=== PATIENT | female | born 1995 | race Caucasian/White ===

== ENCOUNTER 2017-01-31 18:52 | Emergency (ER) | payer MEDICAID, OTHER ==
[2017-01-31] MEDS ORDERED: HYDROCODONE/ACETAMINOPHEN 5-325 MG TABLET PO ONE (19:04)
[2017-01-31] MEDS ORDERED: ONDANSETRON 4 MG TAB.RAPDIS PO ONE (19:04)
--- NOTE | 2017-01-31 19:05 | ER Document Report ---
ED Medical Screen (RME) - General Chief Complaint: Abdominal Pain Stated Complaint: STOMACH PAIN Time Seen by Provider: 01/31/17 19:00 Notes: This 21-year-old female patient comes emergency room complaining of upper abdominal pain since last night. She reports being diagnosed with multiple gallstones on an ultrasound at [facility] about a month ago. I have greeted and performed a rapid initial assessment of this patient. A comprehensive ED assessment and evaluation of the patient, analysis of test results and completion of the medical decision making process will be conducted by additional ED providers. TRAVEL OUTSIDE OF THE U.S. IN LAST 30 DAYS: No - Related Data Allergies/Adverse Reactions: No Known Allergies Allergy (Verified 01/31/17 18:56) Past Medical History Neurological Medical History: Reports: Hx Seizures Renal/ Medical History: Denies: Hx Peritoneal Dialysis - Immunizations Hx Diphtheria, Pertussis, Tetanus Vaccination: Yes Physical Exam - Vital signs Vitals: Temp Pulse Resp BP Pulse Ox 98.4 F 115 H 18 122/81 99 01/31/17 18:57 01/31/17 18:57 01/31/17 18:57 01/31/17 18:57 01/31/17 18:57 Course - Vital Signs Vital signs: Temp Pulse Resp BP Pulse Ox 98.4 F 115 H 18 122/81 99 01/31/17 18:57 01/31/17 18:57 01/31/17 18:57 01/31/17 18:57 01/31/17 18:57
[2017-01-31 19:32] LABS: ABSOLUTE LYMPHOCYTES (AUTO) 1.2 10^3/uL (0.5-4.7); ABSOLUTE MONOCYTES (AUTO) 0.4 10^3/uL (0.1-1.4); ABSOLUTE NEUT (AUTO) 4.4 10^3/uL (1.7-8.2); BASOPHILS % (AUTO) 0.3 % (0-2); EOSINOPHILS % (AUTO) 0.4 % (0-6); HEMATOCRIT 43.6 % (36.0-47.0); HEMOGLOBIN 15.3 g/dL (12.0-15.5); HGB HCT DIFFERENCE 2.3; LYMPHOCYTES % (AUTO) 19.8 % (13-45); MEAN CORPUSCULAR HEMOGLOBIN 33.7 pg (27.0-33.4); MEAN CORPUSCULAR VOLUME 96 fl (80-97); MONOCYTES % (AUTO) 7.1 % (3-13); RED BLOOD COUNT 4.53 10^6/uL (3.72-5.28); RED CELL DISTRIBUTION WIDTH 13.4 % (11.5-14.0); SEGMENTED NEUTROPHILS % (AUTO) 72.4 % (42-78); WHITE BLOOD COUNT 6.1 10^3/uL (4.0-10.5)
[2017-01-31 19:37] LABS: APPEARANCE,URINE SLIGHTLY-CLOUDY; BILIRUBIN,URINE SMALL (NEGATIVE); GLUCOSE, URINE NEGATIVE (NEGATIVE); KETONES,URINE TRACE mg/dL (NEGATIVE); LEUKOCYTE ESTERASE,URINE NEGATIVE (NEGATIVE); NITRITE,URINE NEGATIVE (NEGATIVE); PROTEIN,URINE 30 mg/dL (NEGATIVE); URINE SPECIFIC GRAVITY 1.025
[2017-01-31 19:44] LABS: ALANINE AMINOTRANSFERASE 813 U/L (9-52); ALBUMIN 4.7 g/dL (3.5-5.0); ALKALINE PHOSPHATASE 154 U/L (38-126); ANION GAP 14 (5-19); ASPARTATE AMINO TRANSFERASE 719 U/L (14-36); BILIRUBIN,DIRECT 1.1 mg/dL (0.0-0.4); BILIRUBIN,TOTAL 1.6 mg/dL (0.2-1.3); BLOOD UREA NITROGEN 10 mg/dL (7-20); CALCIUM 10.4 mg/dL (8.4-10.2); CARBON DIOXIDE 26 mmol/L (22-30); CHLORIDE 103 mmol/L (98-107); CREATININE RESULT 0.53 mg/dL (0.52-1.25); GLUCOSE 107 mg/dL (75-110); SODIUM 143.4 mmol/L (137-145); TOTAL PROTEIN 7.6 g/dL (6.3-8.2)
[2017-01-31] MEDS ORDERED: KETOROLAC TROMETHAMINE INJ/PF 30 MG/1 ML SDV IV ONE (20:02)
[2017-01-31] MEDS ORDERED: NORMAL SALINE 1000 ML 1,000 ML IV ONE (20:02)
--- NOTE | 2017-01-31 20:05 | ER Document Report ---
ED GI/ - General Chief Complaint: Abdominal Pain Stated Complaint: STOMACH PAIN Time Seen by Provider: 01/31/17 19:00 Notes: Patient is a 21-year-old female comes emergency department for chief complaint of right upper quadrant pain that radiates around to her back, she states it has been much worse over the past day with vomiting and inability to eat. Pain has become constant. She denies fever or chills. She states she was diagnosed with gallstones by ultrasound down in [place] about a month ago. She denies any other locations of pain. Past medical history of epilepsy, she is treated with valproic acid, Keppra, Onfi. She denies any surgeries or any other medical history. TRAVEL OUTSIDE OF THE U.S. IN LAST 30 DAYS: No - Related Data Allergies/Adverse Reactions: No Known Allergies Allergy (Verified 01/31/17 18:56) Past Medical History - General Information source: Patient - Social History Smoking Status: Current Every Day Smoker Chew tobacco use (# tins/day): No Frequency of alcohol use: Rare Drug Abuse: None Family History: Reviewed & Not Pertinent Neurological Medical History: Reports: Hx Seizures Renal/ Medical History: Denies: Hx Peritoneal Dialysis Surgical Hx: Negative - Immunizations Hx Diphtheria, Pertussis, Tetanus Vaccination: Yes Review of Systems - Review of Systems Constitutional: No symptoms reported EENT: No symptoms reported Cardiovascular: No symptoms reported Respiratory: No symptoms reported Gastrointestinal: See HPI Genitourinary: No symptoms reported Female Genitourinary: No symptoms reported Musculoskeletal: No symptoms reported Skin: No symptoms reported Hematologic/Lymphatic: No symptoms reported Neurological/Psychological: No symptoms reported Physical Exam - Vital signs Vitals: Temp Pulse Resp BP Pulse Ox 98.4 F 115 H 18 122/81 99 01/31/17 18:57 01/31/17 18:57 01/31/17 18:57 01/31/17 18:57 01/31/17 18:57 Interpretation: Normal - General General appearance: Appears well, Alert In distress: None - HEENT Head: Normocephalic, Atraumatic Eyes: Normal Pupils: PERRL - Respiratory Respiratory status: No respiratory distress Chest status: Nontender Breath sounds: Normal Chest palpation: Normal - Cardiovascular Rhythm: Regular, Tachycardia Heart sounds: Normal auscultation, S1 appreciated, S2 appreciated Murmur: No - Abdominal Inspection: Normal Distension: No distension Bowel sounds: Normal Tenderness: Tender - Tenderness in the right upper quadrant on examination, otherwise unremarkable exam with no guarding or tenderness Organomegaly: No organomegaly - Back Back: Normal, Nontender - Extremities General upper extremity: Normal inspection, Nontender, Normal color, Normal ROM , Normal temperature General lower extremity: Normal inspection, Nontender, Normal color, Normal ROM , Normal temperature, Normal weight bearing. No: Renita's sign - Neurological Neuro grossly intact: Yes Cognition: Normal Orientation: AAOx4 [place] Coma Scale Eye Opening: Spontaneous [place] Coma Scale Verbal: Oriented James Coma Scale Motor: Obeys Commands [place] Coma Scale Total: 15 Speech: Normal Motor strength normal: LUE, RUE, LLE, RLE Sensory: Normal - Psychological Associated symptoms: Normal affect, Normal mood - Skin Skin Temperature: Warm Skin Moisture: Dry Skin Color: Normal Course - Re-evaluation Re-evalutation: Patient has been medicated already on my initial evaluation, she states she is mostly comfortable and only has mild pain. There is some right upper quadrant tenderness on examination but otherwise her examination is completely unremarkable. No fever, tachycardia resolved, no hypotension. No leukocytosis, CBC unremarkable. Chemistry shows concerning the elevated LFTs , elevated alk phos, elevated bilirubin. Lipase is unremarkable. Concerning for choledocholithiasis. Ultrasound showing cholelithiasis with gallbladder wall thickening, no obvious dilatation of the common bile duct. Patient given Invanz antibiotics. Patient will likely need ERCP. I discussed this with patient and father at bedside in detail. Discussed with Dr. Reddy. 01/31/17 21:10 Called [facility], patient has been recently under similar circumstances, spoke with Dr. Escoto, patient accepted for transfer. Discussed with patient and father again, they state agreement with plan of going to [facility]. 01/31/17 23:15 Patient reevaluated again, states she has minimal current symptoms, declines any additional medication, alert, well-appearing, unchanged from prior. Stable for transport. - Vital Signs Vital signs: Temp Pulse Resp BP Pulse Ox 97.8 F 77 18 109/64 98 01/31/17 21:34 01/31/17 21:34 01/31/17 21:34 01/31/17 21:34 01/31/17 21:34 - Laboratory Result Diagrams: 01/31/17 19:20 01/31/17 19:20 Laboratory results interpreted by me: 01/31/17 01/31/17 01/31/17 19:20 19:20 19:20 MCH 33.7 H Calcium 10.4 H Total Bilirubin 1.6 H Direct Bilirubin 1.1 H AST 719 H ALT 813 H Alkaline Phosphatase 154 H Urine Protein 30 H Urine Ketones TRACE H Urine Bilirubin SMALL H Urine Urobilinogen 4.0 H Discharge - Discharge Clinical Impression: Right upper quadrant pain, Choledocholithiasis Cholelithiasis Qualifiers: Cholelithiasis location: gallbladder Cholecystitis presence: without cholecystitis Biliary obstruction: with biliary obstruction Qualified Code(s): K80.21 - Calculus of gallbladder without cholecystitis with obstruction Condition: Stable Disposition: [facility]
--- NOTE | 2017-01-31 20:07 | RADIOLOGY REPORT (SQ) ---
EXAM DESCRIPTION: U/S ABDOMEN LIMITED W/O DOP COMPLETED DATE/TIME: 01/31/2017 7:54 pm REASON FOR STUDY: know gallstones, RUQ abd pain since last night COMPARISON: None. TECHNIQUE: Dynamic and static grayscale images acquired of the abdomen and recorded on PACS. Additio nal selected color Doppler and spectral images recorded. LIMITATIONS: None. FINDINGS: PANCREAS: No masses. No peripancreatic edema or fluid collections. LIVER: Echotexture is coarse with increased echogenicity consistent with fatty infiltration. LIVER VASCULATURE: Normal blood flow is identified in the portal vein. GALLBLADDER: Multiple gallstones are identified. There is some thickening of the gallbladder scott. The possibility of cholecystitis should be considered. ULTRASOUND-DETECTED ALATORRE'S SIGN: Positive INTRAHEPATIC DUCTS AND COMMON DUCT: CBD and intrahepatic ducts normal caliber. No filling defects. INFERIOR VENA CAVA: Normal flow. AORTA: No aneurysm. RIGHT KIDNEY: 11.8 cm in length. Normal echogenicity. No solid or suspicious masses. No hydron ephrosis. No calcifications. PERITONEAL AND RIGHT PLEURAL SPACE: No ascites or effusions. OTHER: No other significant finding. IMPRESSION: Multiple gallstones are identified. There is some thickening of the gallbladder scott a nd the possibility of cholecystitis should be considered. Other findings as noted above TECHNICAL DOCUMENTATION: JOB ID: [id number] [employer]- All Rights Reserved
[2017-01-31] MEDS ORDERED: ERTAPENEM SODIUM INJ 1 GM VIAL IV ONE (20:42)
[2017-01-31 21:35] VITALS: BP 109/64
== END 2017-01-31 22:32 | disposition short-term general hospital (02) ==
LOC: ER 18:52
DX: K80.21 Calculus of gallbladder without cholecystitis with obstruction (principal); K80.50 Calculus of bile duct without cholangitis or cholecystitis without obstruction; R10.11 Right upper quadrant pain; M54.9 Dorsalgia, unspecified; F17.200 Nicotine dependence, unspecified, uncomplicated
CPT/HCPCS: 99285; 36415; 83690; 84703; 85025; 80053; 81001; 76705; S0119; J1335; J1885; J7030

== ENCOUNTER 2017-03-01 12:38 | Emergency (ER) | payer MEDICAID ==
--- NOTE | 2017-03-01 14:01 | EKG REPORT ---
SEVERITY:- ABNORMAL ECG - SINUS TACHYCARDIA BORDERLINE RIGHT AXIS DEVIATION ABNORMAL T, CONSIDER ISCHEMIA, INFERIOR LEADS LVH With secondary ST-T Wave changes : Confirmed by: Michelle Rojo 01-Mar-2017 14:00:36
[2017-03-01] MEDS ORDERED: ASPIRIN 81 MG TABLET, CHEWABLE PO ONE (15:04)
[2017-03-01] MEDS ORDERED: NORMAL SALINE 1000 ML 1,000 ML IV PRN (15:06)
[2017-03-01 15:27] LABS: ABSOLUTE MONOCYTES (AUTO) 0.4 10^3/uL (0.1-1.4); ABSOLUTE NEUT (AUTO) 2.7 10^3/uL (1.7-8.2); BASOPHILS % (AUTO) 0.4 % (0-2); EOSINOPHILS % (AUTO) 0.7 % (0-6); HEMATOCRIT 41.6 % (36.0-47.0); HEMOGLOBIN 14.3 g/dL (12.0-15.5); HGB HCT DIFFERENCE 1.3; LYMPHOCYTES % (AUTO) 38.7 % (13-45); MEAN CORPUSCULAR HEMOGLOBIN 33.3 pg (27.0-33.4); MEAN CORPUSCULAR HGB CONC 34.5 g/dL (32.0-36.0); MEAN CORPUSCULAR VOLUME 97 fl (80-97); MONOCYTES % (AUTO) 7.7 % (3-13); SEGMENTED NEUTROPHILS % (AUTO) 52.5 % (42-78); WHITE BLOOD COUNT 5.1 10^3/uL (4.0-10.5)
--- NOTE | 2017-03-01 15:32 | ER Document Report ---
ED General - General Chief Complaint: Chest Pain Stated Complaint: CHEST PAIN Time Seen by Provider: 03/01/17 15:03 Mode of Arrival: Stretcher Information source: Patient, Relative TRAVEL OUTSIDE OF THE U.S. IN LAST 30 DAYS: No - HPI Patient complains to provider of: Chest pain Onset: Yesterday Onset/Duration: Sudden Quality of pain: Achy Severity: Moderate Pain Level: 3 Exacerbated by: Movement, Coughing, Deep breathing Relieved by: Denies Similar symptoms previously: No Recently seen / treated by doctor: No Notes: Patient is a 22-year-old female with a history of epilepsy who denies missing any doses of her medication, who presents to the emergency room complaining of chest pain that started yesterday evening, she does report having an seizure yesterday morning but denies any injury from the seizure, she reports left- sided chest pain initially denies any aggravating or alleviating symptoms, but does report it hurts when she takes a deep breath when I asked her to take a deep breath on exam, and also tells me it hurts when I palpate the left chest, she denies any cough, no fevers, no history of similar symptoms, she also reports that she had a near syncopal episode this evening, patient reports numbness to her left foot below the ankle as well, also stating that she is unable to move it, this is been going on since yesterday as well - Related Data Allergies/Adverse Reactions: No Known Allergies Allergy (Verified 01/31/17 18:56) Past Medical History - General Information source: Patient - Social History Smoking Status: Current Every Day Smoker Chew tobacco use (# tins/day): No Frequency of alcohol use: Occasional Drug Abuse: None Family History: Reviewed & Not Pertinent Patient has suicidal ideation: No Patient has homicidal ideation: No Neurological Medical History: Reports: Hx Seizures Renal/ Medical History: Denies: Hx Peritoneal Dialysis Past Surgical History: Reports: Hx Cholecystectomy - Immunizations Hx Diphtheria, Pertussis, Tetanus Vaccination: Yes Review of Systems - Review of Systems Constitutional: No symptoms reported EENT: No symptoms reported Cardiovascular: Chest pain, Lightheaded Respiratory: No symptoms reported Gastrointestinal: No symptoms reported Genitourinary: No symptoms reported Female Genitourinary: No symptoms reported Musculoskeletal: No symptoms reported Skin: No symptoms reported Hematologic/Lymphatic: No symptoms reported Neurological/Psychological: Numbness Physical Exam - Vital signs Vitals: Temp Pulse Resp BP Pulse Ox 97.8 F 101 H 14 115/74 98 03/01/17 12:57 03/01/17 12:57 03/01/17 12:57 03/01/17 12:57 03/01/17 12:57 Interpretation: Tachycardic - General General appearance: Appears well, Alert In distress: None - HEENT Head: Normocephalic, Atraumatic Eyes: Normal Conjunctiva: Normal Extraocular movements intact: Yes Eyelashes: Normal Pupils: PERRL - Respiratory Respiratory status: No respiratory distress Chest status: Tender - Tender to palpate in left anterior chest wall Breath sounds: Normal Chest palpation: Normal - Cardiovascular Rhythm: Regular Heart sounds: Normal auscultation Murmur: No - Abdominal Inspection: Normal Distension: No distension Bowel sounds: Normal Tenderness: Nontender Organomegaly: No organomegaly - Back Back: Normal, Nontender - Extremities General upper extremity: Normal inspection, Nontender, Normal color, Normal ROM , Normal temperature General lower extremity: Normal inspection, Nontender, Normal color, Normal ROM , Normal temperature. No: Renita's sign Notes: Patient reports no sensation to palpate her left foot below the ankle, 2+ DP pulses, brisk capillary refill - Neurological Neuro grossly intact: Yes Cognition: Normal Orientation: AAOx4 James Coma Scale Eye Opening: Spontaneous James Coma Scale Verbal: Oriented [place] Coma Scale Motor: Obeys Commands [place] Coma Scale Total: 15 Speech: Normal Motor strength normal: LUE, RUE, LLE, RLE Sensory: Normal - Psychological Associated symptoms: Normal affect, Normal mood - Skin Skin Temperature: Warm Skin Moisture: Dry Skin Color: Normal Course - Re-evaluation Re-evalutation: 03/01/17 22:48 Lab and imaging findings were discussed with patient at bedside which are unremarkable, she appears to have a peripheral neuropathy to the left foot, and advised that she is unable to walk without assistance, therefore she was placed in a posterior ankle splint to provide support to her foot, and offered crutches which she declined stating she has crutches at home, she recently moved to the area from [place] and has not yet established neurologist, or a primary care provider, she also indicated that when she has near syncopal episode she is hyperventilating and does relate that this is related to stress, so they are likely panic attacks, before she was given a list of mental health providers in the area to follow-up with as well, patient and father at bedside acknowledge understanding and agreement with this plan - Vital Signs Vital signs: Temp Pulse Resp BP Pulse Ox 97.4 F 101 H 18 101/51 L 98 03/01/17 18:14 03/01/17 12:57 03/01/17 17:31 03/01/17 17:31 03/01/17 17:31 - Laboratory Result Diagrams: 03/01/17 15:05 03/01/17 15:05 - Diagnostic Test Radiology reviewed: Image reviewed, Reports reviewed - EKG Interpretation by Me EKG shows normal: Sinus rhythm Rate: Tachycardia Additional EKG results interpreted by me: 03/01/17 22:50 Inverted T waves in inferior leads Procedures - Immobilization Left Ankle Time completed: 21:50 Pre-Proc Neuro Vasc Exam: Normal Immobilizer type: Posterior ankle Performed by: PCT Post-Proc Neuro Vasc Exam: Normal Alignment checked and good: Yes Discharge - Discharge Clinical Impression: Chest wall pain, Panic attack, Seizure disorder Peripheral neuropathy Qualifiers: Peripheral neuropathy type: mononeuropathy, unspecified Qualified Code(s): G58.9 - Mononeuropathy, unspecified Condition: Stable Disposition: HOME, SELF-CARE Instructions: Anti-Inflammatory Medication ([facility]), Chest Wall Pain ([facility]), Family Physicians / Practices, Neurologist, Neuropathy ([facility]), Seizure, Known Epileptic ([facility]) Additional Instructions: Follow-up with a primary care provider, a neurologist and a mental health professional within the next week. Return to the emergency room immediately if symptoms worsen or any additional concerns. Prescriptions: Ibuprofen [Motrin 600 Mg Tablet] 600 mg PO TID #30 tablet Forms: Return to Work
[2017-03-01 15:36] LABS: ALANINE AMINOTRANSFERASE 27 U/L (9-52); ALBUMIN 4.5 g/dL (3.5-5.0); ALKALINE PHOSPHATASE 66 U/L (38-126); ANION GAP 13 (5-19); ASPARTATE AMINO TRANSFERASE 18 U/L (14-36); BILIRUBIN,DIRECT 0.3 mg/dL (0.0-0.4); BILIRUBIN,TOTAL 0.5 mg/dL (0.2-1.3); BLOOD UREA NITROGEN 11 mg/dL (7-20); CALCIUM 9.9 mg/dL (8.4-10.2); CARBON DIOXIDE 27 mmol/L (22-30); CHLORIDE 104 mmol/L (98-107); CREATININE RESULT 0.63 mg/dL (0.52-1.25); GLUCOSE 75 mg/dL (75-110); POTASSIUM 4.7 mmol/L (3.6-5.0); SODIUM 144.3 mmol/L (137-145); TOTAL PROTEIN 7.2 g/dL (6.3-8.2)
--- NOTE | 2017-03-01 16:25 | RADIOLOGY REPORT (SQ) ---
EXAM DESCRIPTION: CHEST PA/LAT COMPLETED DATE/TIME: 03/01/2017 4:12 pm REASON FOR STUDY: CHEST PAIN COMPARISON: None. EXAM PARAMETERS: NUMBER OF VIEWS: two views TECHNIQUE: Digital Frontal and Lateral radiographic views of the chest acquired. RADIATION DOSE: NA LIMITATIONS: none FINDINGS: LUNGS AND PLEURA: No opacities, masses or pneumothorax. No pleural effusion. MEDIASTINUM AND HILAR STRUCTURES: No masses or contour abnormalities. HEART AND VASCULAR STRUCTURES: Heart normal size. No evidence for failure. BONES: No acute findings. HARDWARE: None in the chest. OTHER: No other significant finding. IMPRESSION: NO SIGNIFICANT RADIOGRAPHIC FINDING IN THE CHEST. TECHNICAL DOCUMENTATION: JOB ID: [id number] [employer]- All Rights Reserved
--- NOTE | 2017-03-01 16:26 | RADIOLOGY REPORT (SQ) ---
EXAM DESCRIPTION: L SPINE WHOLE COMPLETED DATE/TIME: 03/01/2017 4:12 pm REASON FOR STUDY: pain COMPARISON: None. NUMBER OF VIEWS: Five views including obliques. TECHNIQUE: AP, lateral, oblique, and sacral radiographic images acquired of the lumbar spine. LIMITATIONS: None. FINDINGS: MINERALIZATION: Normal. SEGMENTATION: Normal. No transitional anatomy. ALIGNMENT: Normal. VERTEBRAE: Maintained height. No fracture or worrisome bone lesion. DISCS: Preserved height. No significant osteophytes or end plate irregularity. POSTERIOR ELEMENTS: Pedicles and facets are intact. No pars defect or posterior arch defects. HARDWARE: None in the spine. PARASPINAL SOFT TISSUES: Normal. PELVIS: Intact as visualized. No fractures or worrisome bone lesions. SI joints intact. OTHER: No other significant finding. IMPRESSION: NORMAL 5 VIEW LUMBAR SPINE. TECHNICAL DOCUMENTATION: JOB ID: [id number] [employer]- All Rights Reserved
[2017-03-01 17:21] LABS: APPEARANCE,URINE CLEAR; BILIRUBIN,URINE NEGATIVE (NEGATIVE); GLUCOSE, URINE NEGATIVE (NEGATIVE); KETONES,URINE NEGATIVE (NEGATIVE); LEUKOCYTE ESTERASE,URINE NEGATIVE (NEGATIVE); NITRITE,URINE NEGATIVE (NEGATIVE); PROTEIN,URINE NEGATIVE (NEGATIVE); URINE SPECIFIC GRAVITY 1.013; UROBILINOGEN,URINE NEGATIVE mg/dL (<2.0)
[2017-03-01 17:35] VITALS: BP 101/51
== END 2017-03-01 18:15 | disposition home or self-care (01) ==
LOC: ER 12:38
PROC: 2W3RX1Z Immobilization of Left Lower Leg using Splint (ICD-10-PCS; principal; 2017-03-01)
DX: R07.9 Chest pain, unspecified (principal); R07.89 Other chest pain; F41.0 Panic disorder [episodic paroxysmal anxiety]; G40.909 Epilepsy, unspecified, not intractable, without status epilepticus; G58.9 Mononeuropathy, unspecified; F17.200 Nicotine dependence, unspecified, uncomplicated
CPT/HCPCS: 93005; 99285; 96360; 36415; 82962; 85025; 81025; 80053; 81001; 84484; 85379; 71020; 72110; 93010; 29515; J7030

== ENCOUNTER 2017-03-06 22:27 | Emergency (ER) | payer MEDICAID ==
--- NOTE | 2017-03-06 23:36 | ER Document Report ---
HPI - HPI Patient complains to provider of: lost feeling in both feet Onset: Other - wednesday- left foot , came in wednesday. Onset/Duration: Persistent Pain Level: 1 Context: 22 yo disheveled smoker spina bifada (non surgery), non drugs, rare etoh, with hx. epilepsy, (meds depakote 1750 bid, keppra 1500 bid, onfi (benzo) 10mg bid no change in dosing) female c/o left ankle to toes numbness since wednesday, seen in ER on wednesday, Tonight at 9:30 pm it started in right nkle to foot. "I don't have any idea how I cam going to walk now." PCP: none, moved from [place] a month ago. No neurologist local- was given refills from [facility]. LMP: Nexplanon. Fiance rubbed her left foot yesterday, popped her toes which she could feel. States she always twitches because of seizures. Walked to the car at 9:30 pm slower than usual. Did walk with fiance help, states she can't feel from the ankle's down. Gait usually normal but knees give out on her. No vomiting or diarrhea. Shakey more than usual for a couple days. No saddle anesthesia. Associated Symptoms: None - REPRODUCTIVE Reproductive: DENIES: : Past Medical History - General Information source: Patient - Social History Smoking Status: Current Every Day Smoker Frequency of alcohol use: None Drug Abuse: None Occupation: unemployed Lives with: Spouse/Significant other Family History: Reviewed & Not Pertinent Neurological Medical History: Reports: Hx Seizures Renal/ Medical History: Denies: Hx Peritoneal Dialysis Past Surgical History: Reports: Hx Cholecystectomy - Immunizations Hx Diphtheria, Pertussis, Tetanus Vaccination: Yes Vertical Provider Document - CONSTITUTIONAL Agree With Documented VS: Yes Exam Limitations: No Limitations General Appearance: No Apparent Distress - INFECTION CONTROL TRAVEL OUTSIDE OF THE U.S. IN LAST 30 DAYS: No - HEENT HEENT: Normocephalic, PERRLA. negative: Pharyngeal Erythema, Tympanic Membrane Red - NECK Neck: Supple. negative: Lymphadenopathy-Left, Lymphadenopathy-Right - RESPIRATORY Respiratory: Breath Sounds Normal, No Respiratory Distress O2 Sat by Pulse Oximetry: 99 - CARDIOVASCULAR Cardiovascular: Regular Rate, Regular Rhythm - GI/ABDOMEN Gastrointestinal: Abdomen Soft, Abdomen Non-Tender, No Organomegaly Notes: rectal/anal tone normal - BACK Back: Normal Inspection - MUSCULOSKELETAL/EXTREMETIES Musculoskeletal/Extremeties: Non-Tender, No Edema Notes: pt states that she can not move or feel either feet from ankles to plantar feet. the color/temperature, pulses are normal. No babinski response, when I take the big toe and move the whole foot back and forth she does not respond to it and states she can not feel it. once with exam when I had her close her eyes she stopped herself from saying yes when I touched medial right foot. I did get her to walk which she states she could not do by asking her to lift each leg using the thigh muscle, bending knee and planting foot on the ground. She held onto her fiance but did walk 4 feet and go back into the bed. Her demeanor is avoidance of eye contact, wanting to lie on left side with covers over her. I could not elicit patellar or ankle reflexes which she sates is normal for her. - NEURO Level of Consciousness: Awake, Alert Motor/Sensory: Sensory Deficit - per patient, see above, Weak Motor Strength RLE , Weak Motor Strength LLE - will not move feet as request at all Deep Tendon Reflexes: Absent - DERM Integumentary: Warm, Dry, No Rash Course - Re-evaluation Re-evalutation: 03/07/17 00:[address] aWlker who asked me to do a rectal exam in the rectal tone was normal. The patient does not remember the neurologist that she saw it [facility] she was there for 6 days in August. She also rec. to call Neurology at [facility]. 03/07/17 02:18 call to [facility] transitional kindergarten teacher, Dr. Nabeel Mcbride. 03/07/17 02:42 Pt had normal reflexes in August, speaking with Dr. Mcbride which is concerning to him. She needs to see neurologist. 03/07/17 03:23 dr. Demarco frazierist accepts the pt, tele neurologist until 0700, then will have neurologist that can see her. 03/07/17 03:29 Patient call me back in the room and does not want to be transferred anywhere nor does she want to see a neurologist she wants to leave AGAINST MEDICAL ADVICE. 03/07/17 04:15 After lengthy discussion with the patient she vacillated back and forth as to whether she would go to [facility] or not. She is made a final decision and wants to leave AGAINST MEDICAL ADVICE charge nurse Selene was in the room while I explained the risks of a progressing ascending neurological process such as Guillain-Cat which could cause respiratory arrest due to respiratory muscle paralysis. She understands these risks and still wants to leave AGAINST MEDICAL ADVICE. Her fiance was in the room also. - Vital Signs Vital signs: Temp Pulse Resp BP Pulse Ox 98.4 F 94 16 113/75 99 03/06/17 23:09 03/06/17 23:09 03/06/17 23:09 03/06/17 23:09 03/06/17 23:09 - Laboratory Result Diagrams: 03/07/17 01:13 03/07/17 01:13 Discharge - Discharge Clinical Impression: Paresthesia of foot, bilateral, loss of patellar and ankle refexes, Altered gait, hx seizures, Muscle weakness Condition: Good Disposition: AGAINST MEDICAL ADVICE Instructions: Numbness or Paresthesia ([facility]) Additional Instructions: return to the emergency room if you change your mind about seeing a neurologist or symptoms worsen Referrals: LAURIE KAUFMAN MD [ACTIVE STAFF] - 03/08/17
[2017-03-07 01:25] LABS: ABSOLUTE EOSINOPHILS # (AUTO) 0.1 10^3/uL (0.0-0.6); ABSOLUTE LYMPHOCYTES (AUTO) 2.9 10^3/uL (0.5-4.7); ABSOLUTE MONOCYTES (AUTO) 0.4 10^3/uL (0.1-1.4); ABSOLUTE NEUT (AUTO) 2.7 10^3/uL (1.7-8.2); BASOPHILS % (AUTO) 0.6 % (0-2); HEMATOCRIT 37.6 % (36.0-47.0); HEMOGLOBIN 13.1 g/dL (12.0-15.5); HGB HCT DIFFERENCE 1.7; LYMPHOCYTES % (AUTO) 47.4 % (13-45); MEAN CORPUSCULAR HEMOGLOBIN 33.5 pg (27.0-33.4); MEAN CORPUSCULAR HGB CONC 34.7 g/dL (32.0-36.0); MEAN CORPUSCULAR VOLUME 97 fl (80-97); MONOCYTES % (AUTO) 6.2 % (3-13); RED CELL DISTRIBUTION WIDTH 12.5 % (11.5-14.0); SEGMENTED NEUTROPHILS % (AUTO) 44.8 % (42-78); WHITE BLOOD COUNT 6.1 10^3/uL (4.0-10.5)
[2017-03-07 01:44] LABS: ALANINE AMINOTRANSFERASE 24 U/L (9-52); ALKALINE PHOSPHATASE 56 U/L (38-126); ANION GAP 13 (5-19); ASPARTATE AMINO TRANSFERASE 12 U/L (14-36); BILIRUBIN,DIRECT 0.4 mg/dL (0.0-0.4); BILIRUBIN,TOTAL 0.4 mg/dL (0.2-1.3); BLOOD UREA NITROGEN 23 mg/dL (7-20); CALCIUM 9.6 mg/dL (8.4-10.2); CARBON DIOXIDE 23 mmol/L (22-30); CHLORIDE 106 mmol/L (98-107); CREATINE KINASE 50 U/L (30-135); CREATININE RESULT 0.48 mg/dL (0.52-1.25); GLUCOSE 90 mg/dL (75-110); MAGNESIUM 1.9 mg/dL (1.6-2.3); POTASSIUM 4.6 mmol/L (3.6-5.0); SODIUM 141.9 mmol/L (137-145); TOTAL PROTEIN 6.3 g/dL (6.3-8.2)
[2017-03-07 02:00] LABS: APPEARANCE,URINE SLIGHTLY-CLOUDY; BILIRUBIN,URINE NEGATIVE (NEGATIVE); GLUCOSE, URINE NEGATIVE (NEGATIVE); KETONES,URINE TRACE mg/dL (NEGATIVE); LEUKOCYTE ESTERASE,URINE TRACE (NEGATIVE); NITRITE,URINE NEGATIVE (NEGATIVE); PROTEIN,URINE NEGATIVE (NEGATIVE); URINE SPECIFIC GRAVITY 1.031; UROBILINOGEN,URINE NEGATIVE mg/dL (<2.0)
[2017-03-07 02:01] LABS: URINE BARBITURATES SCREEN NEGATIVE; URINE METHADONE SCREEN NEGATIVE; URINE OPIATES LOW NEGATIVE; URINE PHENCYCLIDINE SCREEN NEGATIVE
[2017-03-07] MEDS ORDERED: NORMAL SALINE 1000 ML 2,000 ML IV ONE (02:14)
[2017-03-07 04:35] VITALS: BP 127/81
== END 2017-03-07 04:32 | disposition left against medical advice (07) ==
LOC: ER 22:27
DX: R20.2 Paresthesia of skin (principal); R26.89 Other abnormalities of gait and mobility; M62.81 Muscle weakness (generalized); G40.909 Epilepsy, unspecified, not intractable, without status epilepticus
CPT/HCPCS: 99284; 96360; 36415; 82550; 83735; 84703; 85025; 80053; 81001; 80307; J7030

== ENCOUNTER 2017-03-23 20:37 | Emergency (ER) | payer MEDICAID ==
--- NOTE | 2017-03-23 23:41 | ER Document Report ---
HPI - HPI Pain Level: 5 Notes: Patient is a 22-year-old female with a history of epilepsy who presents ED complaining of fever, nasal congestion/discharge, occasional dry nonproductive cough, body ache 12 hours. Patient states that she is still able to eat and drink without any difficulties, but does have occasional nausea. She still urinating normally and having normal bowel movements. She denies any other recent illness or significant medical history otherwise. Denies any drug allergies. Denies any headache, neck pain, sore throat, chest pain, palpitations, syncope, shortness of breath, wheeze, dyspnea, abdominal pain, vomiting/diarrhea, urinary retention, dysuria, hematuria, loss of control of bowel or bladder, numbness/tingling, muscle paralysis/weakness, or rash. - ROS Notes: REVIEW OF SYSTEMS: CONSTITUTIONAL : see hpi EENT: see hpi CARDIOVASCULAR: Denies chest pain. Denies palpitations or racing or irregular heart beat. Denies ankle edema. RESPIRATORY: see hpi. Denies shortness of breath, difficulty breathing, or wheezing. GASTROINTESTINAL: Denies abdominal pain or distention. Denies nausea, vomiting , or diarrhea. Denies blood in vomitus, stools, or per rectum. Denies black, tarry stools. Denies constipation. GENITOURINARY: Denies difficulty urinating, painful urination, burning, frequency, blood in urine, or discharge. MUSCULOSKELETAL: Denies back or neck pain or stiffness. Denies joint pain or swelling. SKIN: Denies rash, lesions or sores. NEUROLOGICAL: Denies confusion or altered mental status. Denies passing out or loss of consciousness. Denies dizziness or lightheadedness. Denies headache. Denies weakness or paralysis or loss of use of either side. Denies problems with gait or speech. Denies sensory loss, numbness, or tingling. PSYCHIATRIC: Denies anxiety or stress. Denies depression, suicidal ideation, or homicidal ideation. ALL OTHER SYSTEMS REVIEWED AND NEGATIVE. Dictation was performed using [employer] recognition software - CONSTITUTIONAL Constitutional: REPORTS: Fever. DENIES: Chills - EENT EENT: DENIES: Sore Throat, Ear Pain, Eye problems - NEURO Neurology: DENIES: Headache, Weakness, Vision blurred, Dizzinesss / Vertigo - CARDIOVASCULAR Cardiovascular: DENIES: Chest pain - RESPIRATORY Respiratory: DENIES: Trouble Breathing, Coughing - GASTROINTESTINAL Gastrointestinal: DENIES: Abdominal Pain, Black / Bloody Stools - URINARY Urinary: DENIES: Dysuria, Urgency, Frequency - REPRODUCTIVE Reproductive: DENIES: : - MUSCULOSKELETAL Musculoskeletal: REPORTS: Extremity pain Past Medical History - Social History Smoking Status: Unknown if Ever Smoked Family History: Reviewed & Not Pertinent Patient has suicidal ideation: No Patient has homicidal ideation: No Neurological Medical History: Reports: Hx Seizures Renal/ Medical History: Denies: Hx Peritoneal Dialysis Past Surgical History: Reports: Hx Cholecystectomy - Immunizations Hx Diphtheria, Pertussis, Tetanus Vaccination: Yes Vertical Provider Document - CONSTITUTIONAL Agree With Documented VS: Yes Notes: PHYSICAL EXAMINATION: GENERAL: Well-appearing, well-nourished and in no acute distress. A&Ox4 HEAD: Atraumatic, normocephalic. EYES: Pupils equal round and reactive to light, extraocular movements intact, sclera anicteric, conjunctiva are normal. ENT: EAC clear b/l. TM's intact b/l without erythema, fluid, or perforation. Nares patent and with clear discharge. oropharynx clear without exudates. No tonsilar hypertrophy or erythema. Moist mucous membranes. No sinus tenderness. Uvula midline. No palatine shift. No tongue protrusion. No airway compromise. NECK: Normal range of motion, supple without lymphadenopathy. No rigidity/ meningismus. LUNGS: Breath sounds clear to auscultation bilaterally and equal. No wheezes rales or rhonchi. HEART: Regular rate and rhythm without murmurs, rubs, gallops. ABDOMEN: Soft, nontender, nondistended abdomen. No guarding, no rebound. No masses appreciated. Normal bowel sounds present. No CVA tenderness bilaterally. Musculoskeletal: FROM to passive/active. Strength 5+/5. Extremities: No cyanosis, clubbing, or edema b/l. Peripheral pulses 2+. Capillary refill less than 3 seconds. NEUROLOGICAL: Normal speech, normal gait. Normal sensory, motor exams PSYCH: Normal mood, normal affect. SKIN: Warm, Dry, normal turgor, no rashes or lesions noted. - INFECTION CONTROL TRAVEL OUTSIDE OF THE [place] IN LAST 30 DAYS: No - RESPIRATORY O2 Sat by Pulse Oximetry: 99 Course - Re-evaluation Re-evalutation: 03/24/17 00:36 Patient is an afebrile, well-hydrated, 22-year-old female who presents the ED with acute URI, suspect viral at this time. Vitals are stable. PE is otherwise unremarkable. Rapid influenza was unremarkable. No other imaging or lab work warranted at this time. Patient is tolerating p.o. without any difficulties. Low suspicion for any ACS, PE, pneumothorax, pericarditis, dissection, respiratory compromise, severe dehydration, sepsis, meningitis, or other systemic emergent condition at this time. Patient is aware that her condition can change from initial presentation and she needs to monitor symptoms closely and seek medical attention for any acute changes. Recommend conservative measures for symptoms. Recheck with your PCM in 3-5 days. Return to the ED with any worsening/concerning symptoms otherwise as reviewed in discharge. Patient is in agreement. - Vital Signs Vital signs: Temp Pulse Resp BP Pulse Ox 98.1 F 87 114/68 99 03/23/17 20:57 03/23/17 20:57 03/23/17 20:57 03/23/17 20:57 Discharge - Discharge Clinical Impression: Acute URI Condition: Stable Disposition: HOME, SELF-CARE Instructions: Upper Respiratory Illness ([facility]) Additional Instructions: Maintain adequate fluid intake Take meds as directed tylenol/ibuprofen as needed over the counter cold medication as needed for symptoms Humidified air may help F/u: with your PCM in 3-5 days for a recheck Return to the ED with any fever, worsening pain, chest pain, palpitations, syncope, worsening BAILON, neck pain/stiffness, shortness of breath, wheezing, drooling, trouble swallowing/breathing, abdominal pain, n/v/d, rash, or worsening/concerning symptoms otherwise. Referrals: [facility] [Provider Group] - Follow up as needed [facility] [Provider Group] - Follow up as needed
[2017-03-24 00:59] VITALS: BP 100/68
== END 2017-03-24 01:34 | disposition home or self-care (01) ==
LOC: ER 20:37
DX: J06.9 Acute upper respiratory infection, unspecified (principal); R50.9 Fever, unspecified; R09.81 Nasal congestion; M79.1 Myalgia; R11.0 Nausea; Z90.49 Acquired absence of other specified parts of digestive tract
CPT/HCPCS: 87804; 99283

== ENCOUNTER 2017-03-28 18:27 | Emergency (ER) | payer MEDICAID ==
--- NOTE | 2017-03-28 19:16 | ER Document Report ---
HPI - HPI Pain Level: 5 Notes: Patient is a 22-year-old female who presents ED complaining of right wrist and hand pain status post injury prior to arrival. Patient states that she fell off her couch and landed on the posterior wrist and hand. Patient states that she has had pain since then that radiates down into her fingers. She has not noticed any obvious swelling or bruising. She still able to move her fingers and her wrist, but does have pain in doing so primarily at the wrist. She has not had any numbness or tingling. Denies any drug allergies. No other significant medical history associated with the right upper extremity. No head injury or LOC. Denies any IV drug use. Denies any headache, fever, neck pain, chest pain, palpitations, syncope, cough, shortness of breath, wheeze, dyspnea, abdominal pain, nausea/vomiting/diarrhea, dysuria, hematuria, numbness/tingling , muscle paralysis/weakness, or rash. - ROS Notes: REVIEW OF SYSTEMS: CONSTITUTIONAL : Denies fever, chills, or sweats. Denies recent illness. EENT: Denies eye, ear, throat, or mouth pain or symptoms. Denies nasal or sinus congestion or discharge. Denies throat, tongue, or mouth swelling or difficulty swallowing. CARDIOVASCULAR: Denies chest pain. Denies palpitations or racing or irregular heart beat. RESPIRATORY: Denies cough, cold, or chest congestion. Denies shortness of breath, difficulty breathing, or wheezing. GASTROINTESTINAL: Denies abdominal pain or distention. Denies nausea, vomiting , or diarrhea. GENITOURINARY: Denies difficulty urinating, painful urination, burning, frequency, blood in urine, or discharge. MUSCULOSKELETAL: see hpi SKIN: Denies rash, lesions or sores. NEUROLOGICAL: Denies passing out or loss of consciousness. Denies dizziness or lightheadedness. Denies headache. Denies weakness or paralysis or loss of use of either side. Denies problems with gait or speech. Denies sensory loss, numbness, or tingling. ALL OTHER SYSTEMS REVIEWED AND NEGATIVE. Dictation was performed using [employer] voice recognition software - REPRODUCTIVE Reproductive: DENIES: : Past Medical History - Social History Smoking Status: Never Smoker Family History: Reviewed & Not Pertinent Neurological Medical History: Reports: Hx Seizures Renal/ Medical History: Denies: Hx Peritoneal Dialysis Past Surgical History: Reports: Hx Cholecystectomy - Immunizations Hx Diphtheria, Pertussis, Tetanus Vaccination: Yes Vertical Provider Document - CONSTITUTIONAL Agree With Documented VS: Yes Notes: PHYSICAL EXAMINATION: GENERAL: Well-appearing, well-nourished and in no acute distress. A&Ox4 HEAD: Atraumatic, normocephalic. LUNGS: Breath sounds clear to auscultation bilaterally and equal. No wheezes rales or rhonchi. HEART: Regular rate and rhythm without murmurs, rubs, gallops. Musculoskeletal: Rt wrist: FROM to passive. LROM to active. Strength 4+/5. N/ V intact distal. + tenderness to the distal wrist. No ecchymosis, abrasion, laceration, swelling, or erythema. Rt hand: FROM to passive/active. Strength 4+/5. N/V intact distal. + tenderness to the lateral metacarpals w/o ecchymosis, abrasion, laceration, swelling, or erythema. Extremities: No cyanosis, clubbing, or edema b/l. Peripheral pulses 2+. Capillary refill less than 3 seconds. NEUROLOGICAL: Normal speech, normal gait. Normal sensory, motor exams PSYCH: Normal mood, normal affect. SKIN: Warm, Dry, normal turgor, no rashes or lesions noted. - INFECTION CONTROL TRAVEL OUTSIDE OF THE [place] IN LAST 30 DAYS: No - RESPIRATORY O2 Sat by Pulse Oximetry: 99 Course - Re-evaluation Re-evalutation: 03/28/17 19:40 Patient is an afebrile, well-hydrated, 22-year-old female who presents to the ED with a contusion versus sprain to the right wrist and hand. Vitals are stable. PE is otherwise unremarkable for any neurovascular confines, obvious tendon/ligament rupture, obvious fracture or dislocation, or septic joint. X- ray was unremarkable for any acute pathology. Cockup wrist splint provided today. Recommend conservative measures for symptoms. Recheck with your PCM in 3-5 days. Consider consult with orthopedics and physical therapy. Return to the ED with any worsening/concerning symptoms otherwise as reviewed discharge. Patient is in agreement. - Vital Signs Vital signs: Temp Pulse Resp BP Pulse Ox 97.7 F 118 H 20 118/71 99 03/28/17 18:41 03/28/17 18:41 03/28/17 18:41 03/28/17 18:41 03/28/17 18:41 Discharge - Discharge Clinical Impression: Right wrist pain, Right hand pain Condition: Stable Disposition: HOME, SELF-CARE Instructions: Wrist Sprain ([facility]) Additional Instructions: Rest, Ice, Compression, Elevation Use splint as directed Tylenol/ibuprofen as needed Light stretches daily Strength exercises as able Moist heat and massage may help F/u with your PCP in 3-5 days for a recheck Consider consult(s) with Orthopedics/physical therapy for ongoing/worsening symptoms Return to the ED with any worsening symptoms and/or development of fever, headache, chest pain, palpitations, syncope, shortness of breath, trouble breathing, abdominal pain, n/v/d, muscle weakness/paralysis, numbness/tingling, swelling, redness, or other worsening symptoms that are concerning to you. Referrals: [facility] [Provider Group] - Follow up as needed
--- NOTE | 2017-03-28 19:37 | RADIOLOGY REPORT (SQ) ---
EXAM DESCRIPTION: HAND RIGHT 3 VIEWS; WRIST RIGHT 3 VIEWS COMPLETED DATE/TIME: 03/28/2017 7:17 pm REASON FOR STUDY: rt wrist/hand pain s/p injury COMPARISON: None. FINDINGS: Three views right wrist: Normal alignment. Preserved joint spaces. No fracture or bone lesion. Intact soft tissues. Three views right hand: Truncated distal phalanx of the thumb, presumably congenital. Other bones m aintained common normal appearance without evidence of fracture, subluxation or dislocation. Soft ti ssues normal. IMPRESSION: 1. No radiographic evidence of acute right wrist injury. 2. No radiographic evidence o f acute right hand injury. TECHNICAL DOCUMENTATION: JOB ID: [id number]
[2017-03-28] MEDS ORDERED: ACETAMINOPHEN 325 MG TABLET PO ONE (19:48)
[2017-03-28 20:00] VITALS: BP 132/69
== END 2017-03-28 20:00 | disposition home or self-care (01) ==
LOC: ER 18:27
DX: M25.531 Pain in right wrist (principal); M79.641 Pain in right hand; W08.XXXA Fall from other furniture, initial encounter
CPT/HCPCS: 99283; 73130; 73110; J3490

== ENCOUNTER 2017-04-11 11:33 | Emergency (ER) | payer MEDICAID ==
[2017-04-11 11:46] VITALS: BP 118/71
[2017-04-11] MEDS ORDERED: IBUPROFEN 600 MG TABLET PO ONE (12:09)
--- NOTE | 2017-04-11 12:51 | RADIOLOGY REPORT (SQ) ---
EXAM DESCRIPTION: FOOT RIGHT COMPLETE COMPLETED DATE/TIME: 04/11/2017 12:43 pm REASON FOR STUDY: foot injury, pain COMPARISON: None. NUMBER OF VIEWS: Three views. TECHNIQUE: AP, lateral and oblique radiographic images acquired of the right foot. LIMITATIONS: None. FINDINGS: MINERALIZATION: Normal. BONES: There is slight irregularity involving the medial aspect of the 1st metatarsal head which coul d represent a nondisplaced fracture. Bones otherwise appear to be intact. JOINTS: No effusions. SOFT TISSUES: Associated soft tissue swelling. OTHER: No other significant finding. IMPRESSION: QUESTION NONDISPLACED FRACTURE INVOLVING THE MEDIAL ASPECT OF THE 1ST METATARSAL HEAD. CORRELATE WITH POINT TENDERNESS. TECHNICAL DOCUMENTATION: JOB ID: [id number] [employer] All Rights Reserved
[2017-04-11] MEDS ORDERED: HYDROCODONE/ACETAMINOPHEN 5-325 MG TABLET PO ONE (13:00)
--- NOTE | 2017-04-11 13:02 | ER Document Report ---
ED Extremity Problem, Lower - General Chief Complaint: Foot Injury Stated Complaint: RIGHT FOOT INJURY Time Seen by Provider: 04/11/17 12:03 Mode of Arrival: Ambulatory Information source: Patient Notes: Patient is a 22-year-old female who presents to the ER today for right foot pain at the base of the first toe after running around chasing a 13-year-old in the house and slipping on a bed sheet. She cannot tell me how she may have landed to injure the foot but states that she had immediate pain to the right foot. She did not hit her head or lose consciousness.She denies any pain anywhere else. TRAVEL OUTSIDE OF THE [place] IN LAST 30 DAYS: No - Related Data Allergies/Adverse Reactions: pseudoephedrine [From Sudafed] Allergy (Severe, Verified 04/11/17 11:34) Seizures Home Medications: Current Home Medications Clobazam [Onfi] 10 mg PO BID 04/11/17 [History] Divalproex Sodium [Depakote] 250 mg PO BID 04/11/17 [History] Levetiracetam [Keppra] 500 mg PO 04/11/17 [History] Past Medical History - General Information source: Patient - Social History Smoking Status: Current Every Day Smoker Chew tobacco use (# tins/day): No Frequency of alcohol use: Occasional Drug Abuse: None Family History: Reviewed & Not Pertinent Patient has suicidal ideation: No Patient has homicidal ideation: No Neurological Medical History: Reports: Hx Seizures Renal/ Medical History: Denies: Hx Peritoneal Dialysis Past Surgical History: Reports: Hx Cholecystectomy - Immunizations Hx Diphtheria, Pertussis, Tetanus Vaccination: Yes Review of Systems - Review of Systems Constitutional: No symptoms reported EENT: No symptoms reported Cardiovascular: No symptoms reported Respiratory: No symptoms reported Gastrointestinal: No symptoms reported Genitourinary: No symptoms reported Female Genitourinary: No symptoms reported Musculoskeletal: See HPI Skin: No symptoms reported Hematologic/Lymphatic: No symptoms reported Neurological/Psychological: No symptoms reported Physical Exam - Vital signs Vitals: Temp Pulse Resp BP Pulse Ox 97.7 F 95 18 118/71 99 04/11/17 11:44 04/11/17 11:44 04/11/17 11:44 04/11/17 11:44 04/11/17 11:44 - Notes Notes: PHYSICAL EXAMINATION: GENERAL: Obviously uncomfortable, but in no acute distress. HEAD: Atraumatic, normocephalic. EYES: Pupils equal round and reactive to light, extraocular movements intact, sclera anicteric, conjunctiva are normal. NECK: Normal range of motion, supple without lymphadenopathy LUNGS: CTAB and equal. No wheezes rales or rhonchi. HEART: Regular rate and rhythm without murmurs tender over dorsal right EXTREMITIES: Base of the first toe, normal range of motion, no pitting edema. No cyanosis. NEUROLOGICAL: Cranial nerves grossly intact. Normal sensory/motor exams. PSYCH: Normal mood, normal affect. SKIN: Warm, Dry, normal turgor, ecchymosis noted over the dorsal right foot at the base of the great toe Course - Re-evaluation Re-evalutation: 04/11/17 19:43 X-ray revealed a possible first metatarsal fracture, nondisplaced. Patient placed in a postop shoe. She states that she falls a lot because her "knees give out" and is requesting a knee immobilizer brace if she is going to have to wear the postop shoe. I did oblige this. I advised to follow-up with orthopedics. - Vital Signs Vital signs: Temp Pulse Resp BP Pulse Ox 97.7 F 95 18 118/71 99 04/11/17 11:44 04/11/17 11:44 04/11/17 11:44 04/11/17 11:44 04/11/17 11:44 Discharge - Discharge Clinical Impression: Metatarsal fracture Qualifiers: Encounter type: initial encounter Metatarsal bone: first Fracture type: closed Fracture alignment: nondisplaced Laterality: right Qualified Code(s): S92.314A - Nondisplaced fracture of first metatarsal bone, right foot, initial encounter for closed fracture Condition: Stable Disposition: HOME, SELF-CARE Additional Instructions: Return immediately for any new or worsening symptoms. Follow up with orthopedic doctor, call tomorrow to make followup appointment. Prescriptions: Hydrocodone/Acetaminophen [Girard 5-325 mg Tablet] 1 tab PO Q4 PRN #15 tablet PRN Reason: Referrals: DUDLEY LEDEZMA MD [ACTIVE STAFF] - Follow up as needed
== END 2017-04-11 13:31 | disposition home or self-care (01) ==
LOC: ER 11:33
DX: S92.314A Nondisplaced fracture of first metatarsal bone, right foot, initial encounter for closed fracture (principal); W01.0XXA Fall on same level from slipping, tripping and stumbling without subsequent striking against object, initial encounter; F17.200 Nicotine dependence, unspecified, uncomplicated; Z79.899 Other long term (current) drug therapy
CPT/HCPCS: 99283; 73630; L1830; J3490

== ENCOUNTER 2017-07-26 16:21 | Emergency (ER) | payer MEDICAID ==
[~2017-07-26 16:21] MED LIST: SUCCINYLCHOLINE CHLORIDE INJ 200 MG/10 ML VIAL ONE
[2017-07-26] MEDS ORDERED: ACETAMINOPHEN 325 MG TABLET PO ONE (16:27)
[2017-07-26] MEDS ORDERED: CLINDAMYCIN 600 MG/D5W RTU 600 MG/50 ML RTUPB IV ONE (16:34)
[2017-07-26] MEDS ORDERED: KETOROLAC TROMETHAMINE INJ/PF 30 MG/1 ML SDV IV ONE (16:34)
--- NOTE | 2017-07-26 16:35 | ER Document Report ---
ED Fever - General Chief Complaint: Jaw Pain Stated Complaint: JAW PAIN, WEAKNESS Time Seen by Provider: 07/26/17 16:26 Notes: The patient is a 22-year-old female, past medical history seizures, presents with 2 days of worsening sore throat, left facial and neck swelling and fevers up to 104. She is also having dysuria and is concerned about a UTI. EMS provided patient with 500 mL IV NSS, 4 mg Zofran and 650 mg Tylenol. She was seen at [facility] ER yesterday after a fall when she landed on the left side of her face. Patient is having difficulty opening up her mouth, but is handling her secretions. She denies nausea, vomiting, neck stiffness, headache, dental pain, abdominal pain, cough, shortness of breath, stridor or chest pain TRAVEL OUTSIDE OF THE [place] IN LAST 30 DAYS: No - Related Data Allergies/Adverse Reactions: pseudoephedrine [From Sudafed] Allergy (Severe, Verified 04/11/17 11:34) Seizures Past Medical History - General Information source: Patient - Social History Smoking Status: Unknown if Ever Smoked Family History: Reviewed & Not Pertinent Neurological Medical History: Reports: Hx Seizures Renal/ Medical History: Denies: Hx Peritoneal Dialysis Past Surgical History: Reports: Hx Cholecystectomy - Immunizations Hx Diphtheria, Pertussis, Tetanus Vaccination: Yes Review of Systems - Review of Systems Notes: REVIEW OF SYSTEMS: CONSTITUTIONAL: +fevers, +chills EENT: +sore throat, facial pain, -eye pain, -difficulty swallowing, -nasal congestion CARDIOVASCULAR: -chest pain, -syncope. RESPIRATORY: -cough, -SOB GASTROINTESTINAL: -abdominal pain, -nausea, -vomiting, -diarrhea GENITOURINARY: +dysuria, -hematuria MUSCULOSKELETAL: -back pain, -neck pain SKIN: -rash or skin lesions. HEMATOLOGIC: -easy bruising or bleeding. LYMPHATIC: -swollen, enlarged glands. NEUROLOGICAL: -altered mental status or loss of consciousness, -headache, - neurologic symptoms PSYCHIATRIC: -anxiety, -depression. ALL OTHER SYSTEMS REVIEWED AND NEGATIVE. Physical Exam - Vital signs Vitals: Resp Pulse Ox 17 95 07/26/17 16:28 07/26/17 16:28 - Notes Notes: PHYSICAL EXAMINATION: GENERAL: Uncomfortable. HEAD: Atraumatic, normocephalic. EYES: Pupils equal round and reactive to light, extraocular movements intact, sclera anicteric, conjunctiva are normal. ENT: trismus on the left, handling secretions, no tongue swelling, difficult to assess posterior pharynx, no tongue elevation POSTERIOR PHARYNX (under direct laryngoscopy): swelling and erythema of left posterior pharynx, normal vocal cords and epiglottis NECK: Swelling with lymphadenopathy on the left anterior neck LUNGS: Breath sounds clear to auscultation bilaterally and equal. No wheezes rales or rhonchi. HEART: Tachycardic, regular rhythm ABDOMEN: Soft, nontender, normoactive bowel sounds. No guarding, no rebound. No masses appreciated. EXTREMITIES: Normal range of motion, no pitting or edema. No cyanosis. NEUROLOGICAL: Cranial nerves grossly intact. Normal gait. Normal sensory and motor exams. SKIN: Erythema over left anterior/lateral neck Course - Re-evaluation Re-evalutation: Patient seen immediately on arrival due to abnormal vital signs. 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 She is immediately sent to CT soft tissue neck for further assessment due to limited physical exam. Patient is also septic and clindamycin started for suspected oral infection. BP improved with IVF. 07/26/17 17:35 No ENT environmental projects advisor at [facility]. Patient requesting transfer to [place] and call placed to transfer center. Awaiting callback. 07/26/17 18:00 Pt began to have worsening facial and neck swelling and she was no longer able to handle secretions. Decision was made to intubate her for airway protection. Due to possible difficult airway, anesthesia and surgery were called to bedside. Anesthesia was able to successfully intubate the patient using direct laryngoscopy with a 6.5 tube. Propofol started for sedation. [facility] called back and made aware. 07/26/17 18:[address] Acevedo ([facility] [employer] [facility]) and he has accepted patient. Patient hemodynamically stable at this time. 07/26/17 18:51 CXR shows bilateral pulmonary opacities. Will broaden her Abx coverage to include CAP. 07/26/17 18:53 Pt remains HD stable. Awaiting transportation. - Vital Signs Vital signs: Temp Pulse Resp BP Pulse Ox 31 H 102/60 99 07/26/17 17:02 07/26/17 17:02 07/26/17 18:11 - Laboratory Result Diagrams: 07/26/17 15:48 07/26/17 15:48 Laboratory results interpreted by me: 07/26/17 07/26/17 15:48 15:48 Seg Neuts % (Manual) 79 H Band Neutrophils % 14 H Lymphocytes % (Manual) 5 L Monocytes % (Manual) 2 L Abs Neuts (Manual) 8.9 H Carbon Dioxide 20 L Calcium 10.3 H AST 88 H ALT 72 H - Diagnostic Test Radiology reviewed: Image reviewed, Reports reviewed Radiology results interpreted by me: CT Facial w/: Significant soft tissue swelling is seen on the left. This is deep to the pharyngeal tonsil. There are inflammatory changes in the left parapharyngeal space, the human capital consultant space, and in the retropharyngeal space to the left of the midline. There is subcutaneous edema on the left. No definite fluid collection is seen. CXR: SATISFACTORY POSITION OF LIFE LINES. DIFFUSE BILATERAL PARENCHYMAL OPACITIES. - EKG Interpretation by Me EKG shows normal: Sinus rhythm, [place], Intervals, QRS Complexes, ST-T Waves Rate: Tachycardia Critical Care Note - Critical Care Note Total time excluding time spent on procedures (mins): 55 Discharge - Discharge Clinical Impression: Neck infection, Compromised airway, Opacities of both lungs present on chest x- ray Condition: Serious Disposition: [facility]
[2017-07-26] MEDS: NORMAL SALINE 1000 ML 1,000 ML IV PRN ×2 (17:05→18:27)
[2017-07-26 17:09] LABS: VENOUS BLOOD BASE EXCESS -1.3 mmol/L; VENOUS BLOOD HCO3 23.6 mmol/L (20-32); VENOUS BLOOD PCO2 40.3 mmHg (35-63); VENOUS BLOOD PH 7.39 (7.30-7.42)
[2017-07-26 17:16] LABS: HEMATOCRIT 42.9 % (36.0-47.0); HEMOGLOBIN 14.6 g/dL (12.0-15.5); MEAN CORPUSCULAR HEMOGLOBIN 32.8 pg (27.0-33.4); MEAN CORPUSCULAR VOLUME 96 fl (80-97); PLATELET COUNT 166 10^3/uL (150-450); RED BLOOD COUNT 4.46 10^6/uL (3.72-5.28); RED CELL DISTRIBUTION WIDTH 12.5 % (11.5-14.0); WHITE BLOOD COUNT 9.6 10^3/uL (4.0-10.5)
[2017-07-26 17:25] LABS: ALANINE AMINOTRANSFERASE 72 U/L (9-52); ALBUMIN 4.7 g/dL (3.5-5.0); ALKALINE PHOSPHATASE 86 U/L (38-126); ANION GAP 16 (5-19); ASPARTATE AMINO TRANSFERASE 88 U/L (14-36); BILIRUBIN,DIRECT 0.4 mg/dL (0.0-0.4); BILIRUBIN,TOTAL 0.8 mg/dL (0.2-1.3); BLOOD UREA NITROGEN 13 mg/dL (7-20); CALCIUM 10.3 mg/dL (8.4-10.2); CARBON DIOXIDE 20 mmol/L (22-30); CHLORIDE 104 mmol/L (98-107); GLUCOSE 97 mg/dL (75-110); POTASSIUM 3.9 mmol/L (3.6-5.0); SODIUM 140.4 mmol/L (137-145); TOTAL PROTEIN 7.4 g/dL (6.3-8.2)
--- NOTE | 2017-07-26 17:25 | RADIOLOGY REPORT (SQ) ---
EXAM DESCRIPTION: CT SOFT TISSUE NECK WITH COMPLETED DATE/TIME: 07/26/2017 4:58 pm REASON FOR STUDY: septic, trismus, neck swelling COMPARISON: None. TECHNIQUE: Post IV contrasted scanning from skull base through lung apices with review of bone, soft tissue and lung windows. Reconstructed coronal and sagittal MPR images reviewed. All images stored on PACS. All CT scanners at this facility use dose modulation, iterative reconstruction, and/or weight based d osing when appropriate to reduce radiation dose to as low as reasonably achievable (ALARA). [facility]: Dose Right [facility]: CareDose [facility]: Dose Right [facility]: Teradose 4D [facility]: Codeship CONTRAST TYPE AND DOSE: contrast/concentration: Isovue 370.00 mg/ml; Total Contrast Delivered: 74.0 ml; Total Saline Delivered: 55.0 ml RENAL FUNCTION: None required. The patient is less than 50 years old. RADIATION DOSE: CT Rad equipment meets quality standard of care and radiation dose reduction techniq ues were employed. CTDIvol: 15.5 mGy. DLP: 541 mGy-cm. . LIMITATIONS: None. FINDINGS: SKULL BASE: Intact. MAJOR SALIVARY GLANDS: No solid or cystic masses. No inflammatory changes. LYMPHADENOPATHY: There is mild adenopathy on the left side of the neck. MUCOSAL MASSES OR ASYMMETRY: Significant soft tissue swelling is seen on the left. This is deep to t he pharyngeal tonsil. There are inflammatory changes in the left parapharyngeal space, the masticato r space, and in the retropharyngeal space to the left of the midline. There is subcutaneous edema on the left. No definite fluid collection is seen. LARYNX/CORDS: No abnormal findings. VASCULAR STRUCTURES: The major vessels are patent. LUNG APICES: Clear. BONES: Intact. THYROID: Normal size. No masses. PARANASAL SINUSES: Clear. OTHER: No other significant finding. IMPRESSION: Considerable left-sided inflammatory changes as described. Cannot entirely exclude tiny tonsillar abscess. The inflammatory changes are found to involve the parapharyngeal space, masticato r space, and retropharyngeal space on the left. TECHNICAL DOCUMENTATION: JOB ID: [id number] Quality ID # [id number]: Final reports with documentation of one or more dose reduction techniques (e.g., Au tomated exposure control, adjustment of the mA and/or kV according to patient size, use of iterative reconstruction technique) 2010 [employer]- All Rights Reserved Reading location - IP/workstation name: [email or web address]
[2017-07-26 17:45] LABS: ABSOLUTE LYMPHOCYTES# (MANUAL) 0.5 10^3/uL (0.5-4.7); ABSOLUTE MONOCYTES # (MANUAL) 0.2 10^3/uL (0.1-1.4); ABSOLUTE NEUTROPHILS# (MANUAL) 8.9 10^3/uL (1.7-8.2); BAND NEUTROPHILS % (MANUAL) 14 % (3-5); BASOPHILS % (MANUAL) 0 % (0-2); EOSINOPHILS % (MANUAL) 0 % (0-6); LYMPHOCYTES % (MANUAL) 5 % (13-45); MONOCYTES % (MANUAL) 2 % (3-13); SEGMENTED NEUTROPHILS % (MAN) 79 % (42-78); TOTAL CELLS COUNTED 100
[2017-07-26 17:48] LABS: PLATELET COMMENT ADEQUATE; PLATELET LARGE PRESENT; TOXIC GRANULATION SLIGHT
[2017-07-26] MEDS ORDERED: DEXAMETHASONE SOD PHOS INJ 10 MG/1 ML VIAL IV ONE (17:48)
[2017-07-26] MEDS ORDERED: ONDANSETRON HCL INJ/PF 4 MG/2 ML SDV IV ONE (17:48)
[2017-07-26] MEDS ORDERED: ETOMIDATE INJ/PF 20 MG/10 ML SDV IV ONE ×2 (17:53)
[2017-07-26] MEDS ORDERED: SUCCINYLCHOLINE CHLORIDE INJ 200 MG/10 ML VIAL IV ONE (17:54)
[2017-07-26] MEDS ORDERED: PROPOFOL 100 ML IV PRN (17:54)
[2017-07-26] MEDS ORDERED: METOCLOPRAMIDE HCL INJ/PF 10 MG/2 ML SDV ONE (18:04)
[2017-07-26] MEDS ORDERED: PROPOFOL INJ 200 MG/20 ML VIAL IV ONE (18:20)
[2017-07-26] MEDS ORDERED: FENTANYL CITRATE INJ/PF 100 MCG/2 ML AMPUL IV PRN ×2 (18:20→20:35)
--- NOTE | 2017-07-26 18:42 | RADIOLOGY REPORT (SQ) ---
EXAM DESCRIPTION: CHEST SINGLE VIEW COMPLETED DATE/TIME: 07/26/2017 6:33 pm REASON FOR STUDY: intubated COMPARISON: 03/01/2017. EXAM PARAMETERS: NUMBER OF VIEWS: One view. TECHNIQUE: Single frontal radiographic view of the chest acquired. RADIATION DOSE: NA LIMITATIONS: None. FINDINGS: LUNGS AND PLEURA: Diffuse hazy bilateral parenchymal opacities, right greater than left. MEDIASTINUM AND HILAR STRUCTURES: No masses. Contour normal. HEART AND VASCULAR STRUCTURES: Heart normal in size. Normal vasculature. BONES: No acute findings. HARDWARE: Endotracheal tube with the tip located 4 cm proximal to the brock. Nasogastric tube with the tip located in the stomach. OTHER: No other significant finding. IMPRESSION: SATISFACTORY POSITION OF LIFE LINES. DIFFUSE BILATERAL PARENCHYMAL OPACITIES. TECHNICAL DOCUMENTATION: JOB ID: [id number] [employer]- All Rights Reserved Reading location - IP/workstation name: [email or web address]
[2017-07-26] MEDS ORDERED: AZITHROMYCIN INJ 500 MG VIAL IV ONE (18:55)
[2017-07-26] MEDS ORDERED: CEFTRIAXONE 1 GM/D5W RTU 1 GM/50 ML RTUPB IV ONE (18:55)
[2017-07-26] MEDS ORDERED: CEFTRIAXONE SODIUM 1,000 MG in NORMAL SALINE 100 ML IV ONE (20:00)
[2017-07-26] MEDS ORDERED: NORMAL SALINE 1000 ML 1,000 ML IV ONE ×2 (20:31→20:36)
[2017-07-26] MEDS ORDERED: KETAMINE HCL INJ 500 MG/10 ML VIAL ONE (20:34)
[2017-07-26] MEDS ORDERED: KETAMINE HCL INJ 500 MG/10 ML VIAL IV ONE (20:35)
--- NOTE | 2017-07-26 20:37 | ER Document Report ---
Doctor's Note Notes: 07/26/17 20:36 I did received signout from Dr. Najera regarding this patient. Patient has had a deterioration of her blood pressure becoming quite hypotensive into the low 80s systolic. Likely secondary to sedation has patient is receiving both propofol and fentanyl. I discontinued the propofol and will transition to a ketamine infusion and have decreased the fentanyl from 100 mcg/h to 30 mcg every 30 minutes as needed. He also started 1 L normal saline bolus and I will start maintenance fluids at 125 cc/h thereafter. Patient is a probably sedated at this time. Will continue to monitor closely
--- NOTE | 2017-07-26 21:11 | EKG REPORT ---
SEVERITY:- BORDERLINE ECG - SINUS TACHYCARDIA PROBABLE LEFT ATRIAL ABNORMALITY BORDERLINE RIGHT AXIS DEVIATION : Confirmed by: Michelle Rojo 26-Jul-2017 21:11:03
[2017-07-26 21:31] VITALS: BP 107/72
[2017-07-27 12:36] LABS: PATH REVIEW PATHOLOGIST REVIEWED
== END 2017-07-26 21:34 | disposition short-term general hospital (02) ==
LOC: ER 16:21
DX: R68.84 Jaw pain (principal); R53.1 Weakness; R22.0 Localized swelling, mass and lump, head; R91.8 Other nonspecific abnormal finding of lung field; J02.9 Acute pharyngitis, unspecified; R50.9 Fever, unspecified; R30.0 Dysuria; G40.909 Epilepsy, unspecified, not intractable, without status epilepticus; Z90.49 Acquired absence of other specified parts of digestive tract
CPT/HCPCS: 93005; 99291; 96361; 51702; 96375; 96365; 96367; 36415; 87040; 85025; 80053; 82803; 83605; 71045; 70491; 93010; S0077; J3010; J2704; J3490 ×2; J1885; J2765; J0330; J2405; J7030; J0456; J1100; 31500

== ENCOUNTER 2017-10-31 01:04 | Emergency (ER) | payer MEDICAID | END 2017-10-31 02:39 | disposition left against medical advice (07) | LOC: ER 01:04 | DX: Z53.21 Procedure and treatment not carried out due to patient leaving prior to being seen by health care provider (principal) ==

== ENCOUNTER 2017-12-27 17:08 | Emergency (ER) | payer OTHER, MEDICAID ==
[2017-12-27 21:14] VITALS: BP 104/67
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
== END 2017-12-27 22:17 | disposition home or self-care (01) ==
LOC: ER 17:08
DX: S16.1XXA Strain of muscle, fascia and tendon at neck level, initial encounter (principal); S40.011A Contusion of right shoulder, initial encounter; V89.2XXA Person injured in unspecified motor-vehicle accident, traffic, initial encounter; F17.200 Nicotine dependence, unspecified, uncomplicated
CPT/HCPCS: 72050; 72110; 81025; 99283

== ENCOUNTER 2018-02-10 20:11 | Emergency (ER) | payer MEDICAID, OTHER ==
[2018-02-10 22:50] LABS: ABSOLUTE EOSINOPHILS # (AUTO) 0.1 10^3/uL (0.0-0.6); ABSOLUTE LYMPHOCYTES (AUTO) 3.2 10^3/uL (0.5-4.7); ABSOLUTE MONOCYTES (AUTO) 0.4 10^3/uL (0.1-1.4); ABSOLUTE NEUT (AUTO) 2.4 10^3/uL (1.7-8.2); BASOPHILS % (AUTO) 0.6 % (0-2); EOSINOPHILS % (AUTO) 1.3 % (0-6); HEMATOCRIT 41.2 % (36.0-47.0); HEMOGLOBIN 14.1 g/dL (12.0-15.5); LYMPHOCYTES % (AUTO) 52.3 % (13-45); MEAN CORPUSCULAR HEMOGLOBIN 32.9 pg (27.0-33.4); MEAN CORPUSCULAR HGB CONC 34.2 g/dL (32.0-36.0); MEAN CORPUSCULAR VOLUME 96 fl (80-97); MONOCYTES % (AUTO) 6.3 % (3-13); PLATELET COUNT 168 10^3/uL (150-450); RED BLOOD COUNT 4.29 10^6/uL (3.72-5.28); RED CELL DISTRIBUTION WIDTH 12.4 % (11.5-14.0); SEGMENTED NEUTROPHILS % (AUTO) 39.5 % (42-78); TOTAL CELLS COUNTED % (AUTO) 100 %; WHITE BLOOD COUNT 6.1 10^3/uL (4.0-10.5)
[2018-02-10 22:54] LABS: APPEARANCE,URINE CLOUDY; BILIRUBIN,URINE NEGATIVE (NEGATIVE); COLOR,URINE YELLOW; GLUCOSE, URINE NEGATIVE (NEGATIVE); KETONES,URINE TRACE mg/dL (NEGATIVE); LEUKOCYTE ESTERASE,URINE NEGATIVE (NEGATIVE); NITRITE,URINE NEGATIVE (NEGATIVE); PROTEIN,URINE NEGATIVE (NEGATIVE); URINE SPECIFIC GRAVITY 1.024; UROBILINOGEN,URINE NEGATIVE mg/dL (<2.0)
[2018-02-10 23:20] LABS: ALANINE AMINOTRANSFERASE 15 U/L (9-52); ALBUMIN 4.8 g/dL (3.5-5.0); ALKALINE PHOSPHATASE 57 U/L (38-126); ANION GAP 15 (5-19); ASPARTATE AMINO TRANSFERASE 21 U/L (14-36); BILIRUBIN,DIRECT 0.2 mg/dL (0.0-0.4); BILIRUBIN,TOTAL 0.4 mg/dL (0.2-1.3); BLOOD UREA NITROGEN 10 mg/dL (7-20); CALCIUM 10.3 mg/dL (8.4-10.2); CARBON DIOXIDE 26 mmol/L (22-30); CHLORIDE 102 mmol/L (98-107); CREATINE KINASE 57 U/L (30-135); GLUCOSE 83 mg/dL (75-110); POTASSIUM 4.2 mmol/L (3.6-5.0); SODIUM 142.8 mmol/L (137-145)
[2018-02-10 23:32] LABS: CREATINE KINASE MB < 0.22 ng/mL (<4.55); TROPONIN I < 0.012 ng/mL
[2018-02-11] MEDS ORDERED: NORMAL SALINE 1000 ML 1,000 ML IV ONE (00:02)
[2018-02-11] MEDS ORDERED: PROMETHAZINE HCL INJ 25 MG/1 ML VIAL IV ONE (00:02)
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
[2018-02-11 02:00] VITALS: BP 115/70
--- NOTE | 2018-02-11 12:40 | EKG REPORT ---
SEVERITY:- BORDERLINE ECG - SINUS RHYTHM BORDERLINE T ABNORMALITIES, INFERIOR LEADS : Confirmed by: Maria Elena Olmos MD 11-Feb-2018 12:39:01
== END 2018-02-11 01:59 | disposition home or self-care (01) ==
LOC: ER 20:11
DX: R55 Syncope and collapse (principal); R11.0 Nausea; W18.30XA Fall on same level, unspecified, initial encounter; Y92.009 Unspecified place in unspecified non-institutional (private) residence as the place of occurrence of the external cause; F17.210 Nicotine dependence, cigarettes, uncomplicated; G40.909 Epilepsy, unspecified, not intractable, without status epilepticus
CPT/HCPCS: 93005; 99284; 96361; 96374; 36415; 82553; 82550; 85025; 80053; 81001; 84484; 93010; J2550; J7030

== ENCOUNTER 2018-05-06 15:27 | Emergency (ER) | payer MEDICAID ==
[2018-05-06 15:42] VITALS: BP 119/80
[2018-05-06] MEDS ORDERED: HYDROCODONE/ACETAMINOPHEN 5-325 MG TABLET PO ONE (16:00)
[2018-05-06] MEDS ORDERED: DIPH/PERTUSS(ACELL)/TETANUS VAC/PF 0.5 ML SYR (>=10YO) IM ONE (16:01)
--- NOTE | 2018-05-06 16:02 | ER Document Report ---
HPI - HPI Patient complains to provider of: Right ankle injury Time Seen by Provider: 05/06/18 15:45 Onset: Just prior to arrival Onset/Duration: Sudden Quality of pain: Achy Pain Level: 2 Context: Patient has a history of gait instability and has history of frequent falls. Patient was outside and fell on the concrete injuring her right foot and ankle. Patient with swelling to the right ankle. Patient denies any head injury or loss of consciousness. Associated Symptoms: Other - Right foot and ankle injury Exacerbated by: Standing, Movement, Walking Relieved by: Denies Similar symptoms previously: Yes Recently seen / treated by doctor: No - ROS ROS below otherwise negative: Yes Systems Reviewed and Negative: Yes All other systems reviewed and negative - NEURO Neurology: DENIES: Headache - GASTROINTESTINAL Gastrointestinal: DENIES: Nausea, Patient vomiting - REPRODUCTIVE Reproductive: DENIES: : - MUSCULOSKELETAL Musculoskeletal: REPORTS: Extremity pain, Swelling - DERM Skin Color: Normal Skin Problems: Abrasion Past Medical History - General Information source: Patient - Social History Smoking Status: Current Every Day Smoker Smoking Education Provided: Yes Frequency of alcohol use: None Drug Abuse: None Occupation: none Lives with: Family Family History: Reviewed & Not Pertinent Neurological Medical History: Reports: Hx Seizures, Other - Gait instability Renal/ Medical History: Denies: Hx Peritoneal Dialysis Past Surgical History: Reports: Hx Cholecystectomy - Immunizations Hx Diphtheria, Pertussis, Tetanus Vaccination: Yes Vertical Provider Document - CONSTITUTIONAL Agree With Documented VS: Yes Exam Limitations: No Limitations General Appearance: WD/WN, No Apparent Distress - INFECTION CONTROL TRAVEL OUTSIDE OF THE [place] IN LAST 30 DAYS: No - HEENT HEENT: Atraumatic, Normocephalic - NECK Neck: Normal Inspection, Supple - RESPIRATORY Respiratory: No Respiratory Distress - CARDIOVASCULAR Cardiovascular: Regular Rate Pulses: Normal: Dorsalis pedis - MUSCULOSKELETAL/EXTREMETIES Musculoskeletal/Extremeties: MAEW, Tender - Right ankle tenderness over lateral malleolar area with 2+ edema, right midfoot tenderness over navicular bone, Edema - Right lateral ankle - NEURO Level of Consciousness: Awake, Alert, Appropriate Motor/Sensory: No Motor Deficit - DERM Integumentary: Warm, Dry Notes: Abrasion to dorsal aspect of bilateral feet Course - Re-evaluation Re-evalutation: 05/06/18 17:36 Patient and family states that she is unable to use crutches due to her gait instability, offered patient switching splint to a ankle stirrup splint so that she could put some weight to the foot, patient declined stating that stirrup splint does not provide any immobilization. Patient offered prescription for a walker, family does not feel that she can manage a walker but they will try to use one. Family is requesting a prescription for a wheelchair. Family is requesting a walking boot, patient advised that we do not have walking boots here but that the orthopedic office may be able to provide her with one. - Vital Signs Vital signs: Temp Pulse Resp BP Pulse Ox 98.1 F 86 16 119/80 98 05/06/18 15:40 05/06/18 15:40 05/06/18 15:40 05/06/18 15:40 05/06/18 15:40 - Diagnostic Test Radiology reviewed: Image reviewed, Reports reviewed Discharge - Discharge Clinical Impression: right malleolar avulsion fracture Foot abrasion Qualifiers: Encounter type: initial encounter Laterality: unspecified laterality Qualified Code(s): S90.819A - Abrasion, unspecified foot, initial encounter Condition: Stable Disposition: HOME, SELF-CARE Instructions: Abrasions ([facility]), Avulsion Fracture of the Ankle ([facility]), Use of Crutches ([facility]), Ice & Elevation ([facility]), Splint Precautions ([facility]), Tetanus Immunization Given ([facility]) Additional Instructions: Return immediately for any new or worsening symptoms Followup with your primary care provider, call tomorrow to make a followup appointment Follow-up with orthopedics for further evaluation, call Wednesday for an appointment Prescriptions: Hydrocodone/Acetaminophen [Alden 5-325 mg Tablet] 1 tab PO Q6 PRN #12 tablet PRN Reason: Walker [Folding Walker] 1 each ASDIR PRN #1 each PRN Reason: Wheelchair 1 each ASDIR PRN #1 each PRN Reason: Forms: Smoking Cessation Education Referrals: VALENTINO LINARES MD [Primary Care Provider] - Follow up as needed [facility] [Provider Group] - 05/09/18
--- NOTE | 2018-05-06 16:51 | RADIOLOGY REPORT (SQ) ---
EXAM DESCRIPTION: FOOT RIGHT COMPLETE COMPLETED DATE/TIME: 05/06/2018 4:17 pm REASON FOR STUDY: fall, r foot/ankle pain COMPARISON: None. NUMBER OF VIEWS: Three views. TECHNIQUE: AP, lateral and oblique radiographic images acquired of the right foot. LIMITATIONS: None. FINDINGS: MINERALIZATION: Normal. BONES: There appears to be an avulsion injury to the lateral malleolus. No osseous abnormality in th e foot. JOINTS: No effusions. SOFT TISSUES: No soft tissue swelling. No foreign body. OTHER: No other significant finding. IMPRESSION: Negative study of the foot. There appears to be an avulsion injury to the lateral malle olus. TECHNICAL DOCUMENTATION: JOB ID: [id number] [employer]- All Rights Reserved Reading location - IP/workstation name: [email or web address]
--- NOTE | 2018-05-06 16:52 | RADIOLOGY REPORT (SQ) ---
EXAM DESCRIPTION: ANKLE RIGHT COMPLETE COMPLETED DATE/TIME: 05/06/2018 4:17 pm REASON FOR STUDY: fall, r foot/ankle pain COMPARISON: None. NUMBER OF VIEWS: Three views. TECHNIQUE: AP, lateral, and oblique radiographic images acquired of the right ankle. LIMITATIONS: None. FINDINGS: MINERALIZATION: Normal. BONES: There appears to be avulsion of small fragment of bone from the tip of the distal fibula. JOINTS: No effusions. SOFT TISSUES: Lateral soft tissue swelling. OTHER: No other significant finding. IMPRESSION: Avulsion injury to the lateral malleolus. TECHNICAL DOCUMENTATION: JOB ID: [id number] [employer]- All Rights Reserved Reading location - IP/workstation name: [email or web address]
== END 2018-05-06 17:40 | disposition home or self-care (01) ==
LOC: ER 15:27
DX: S90.819A Abrasion, unspecified foot, initial encounter (principal); S82.891A Other fracture of right lower leg, initial encounter for closed fracture; W18.30XA Fall on same level, unspecified, initial encounter; F17.200 Nicotine dependence, unspecified, uncomplicated; Z91.81 History of falling; Z90.49 Acquired absence of other specified parts of digestive tract; Z23 Encounter for immunization
CPT/HCPCS: 90471; 90715; 99283

== ENCOUNTER 2018-05-22 13:37 | Emergency (ER) | payer MEDICAID ==
[2018-05-22] MEDS ORDERED: LORAZEPAM INJ 2 MG/1 ML VIAL IV ONE (14:29)
[2018-05-22] MEDS ORDERED: LEVETIRACETAM 1000 MG/NACL-ISO 1,000 MG/100 ML RTUPB IV ONE (14:29)
--- NOTE | 2018-05-22 14:34 | ER Document Report ---
ED General - General Chief Complaint: Seizure Stated Complaint: POSSIBLE SEIZURE Time Seen by Provider: 05/22/18 13:58 Primary Care Provider: [facility] [Provider Group] - Follow up in 3-5 days VALENTINO LINARES MD [Primary Care Provider] - Follow up as needed Notes: Patient is a 23-year-old female with seizure disorder that presents to the emergency department for chief complaint of body aches, and cramping and myoclonic jerking. Patient states that she gets frequent seizures, and she is been having myoclonic jerking, and body aches, that is been worse than usual to the point where she is having trouble getting up to her feet so she decided to come to the emergency department to be evaluated. She is on multiple anti- seizure medications, she is been having some nausea but no vomiting. She does take Depakote, Keppra and Onfi. She also takes folic acid. Her significant other and her have also been trying to get , and they wanted to be tested for this as well, her first day of last menstrual period was approximately 5-6 weeks ago, they do not know the exact date. She denies having any headaches, lightheadedness, chest pain, shortness of breath, nausea, vomiting, dysuria, hematuria. Past Medical History: Complex seizure disorder Past Surgical History: Cholecystectomy, ankle surgery Social History: Admits to smoking cigarettes, trying to quit, denies alcohol or drug use. Family History: Reviewed and noncontributory for presenting illness Allergies: Reviewed, see documented allergy list. REVIEW OF SYSTEMS: Other than noted above, the 12 point review of systems was reviewed with the patient and were negative, all pertinent findings are included in the HPI. PHYSICAL EXAMINATION: Vital signs reviewed, nursing noted reviewed. GENERAL: Well-appearing, well-nourished and in no acute distress. HEAD: Atraumatic, normocephalic. EYES: Eyes appear normal, extraocular movements intact, sclera anicteric, conjunctiva are normal. No nystagmus, PERRLA ENT: nares patent, oropharynx clear without exudates. Moist mucous membranes. NECK: Normal range of motion, supple without lymphadenopathy LUNGS: Breath sounds clear to auscultation bilaterally and equal. No wheezes rales or rhonchi. HEART: Regular rate and rhythm without murmurs ABDOMEN: Soft, nontender, normoactive bowel sounds. No rebound, guarding, or rigidity. No masses appreciated. EXTREMITIES: Nontender, good range of motion, no pitting or edema. NEUROLOGICAL: No focal neurological deficits. Moves all extremities spontaneously Motor and sensory grossly intact on exam. She does have a periodic myoclonic jerk, patient is conscious though, no true seizure, tonic- clonic activity at this time. PSYCH: Normal mood, normal affect. SKIN: Warm, Dry, normal turgor, no rashes or lesions noted on exposed skin TRAVEL OUTSIDE OF THE [place] IN LAST 30 DAYS: No - Related Data Allergies/Adverse Reactions: pseudoephedrine [From Sudafed] Allergy (Severe, Verified 05/06/18 15:30) Seizures Past Medical History - Social History Smoking Status: Unknown if Ever Smoked Family History: Reviewed & Not Pertinent Patient has suicidal ideation: No Patient has homicidal ideation: No Neurological Medical History: Reports: Hx Seizures Renal/ Medical History: Denies: Hx Peritoneal Dialysis Past Surgical History: Reports: Hx Cholecystectomy - Immunizations Hx Diphtheria, Pertussis, Tetanus Vaccination: Yes Physical Exam - Vital signs Vitals: Temp Pulse Resp BP 98.3 F 96 18 102/90 H 05/22/18 13:49 05/22/18 13:49 05/22/18 13:49 05/22/18 13:49 Course - Re-evaluation Re-evalutation: Patient seen and examined vital signs reviewed. Laboratory data and imaging were ordered as appropriate for the patient's presenting symptoms and complaint, with consideration of any critical or life threatening conditions that may be associated with their obtained history and exam as noted above. Patient was treated with IV Keppra 1000 mg, and IV Ativan 1 mg to help with her myoclonic jerking which is causing her discomfort Results were reviewed when available and demonstrated unremarkable blood work with the exception of a positive hCG, this was news to the patient and the patient's significant other, they were related to hear this news, they have been trying to get , she was educated that at least through the medication she is on, including Depakote, and Onfi, have contraindications during different stages, in particular the Depakote, I advised strongly that they need to call her neurologist, to better coordinate her care of her epilepsy during her , as well as with the [facility], she does have a relationship with [facility]. She is advised to call both these [facility] re providers tomorrow, to schedule consultations. The patient was re-evaluated and was stable and improved Evaluation was most consistent with seizure activity, and Results were discussed with the patient at this point, after careful consideration I feel that that patient can be discharged from the emergency department, the patient was educated treatments and reasons to return to the emergency department based on their presumed diagnosis as noted above, they were advised to followup with a primary care physician in 2-3 days. Patient was agreeable to plan of care. *Note is created using voice recognition software and may contain spelling, syntax or grammatical errors. Laboratory 05/22/18 05/22/18 05/22/18 13:43 13:43 13:43 WBC 6.1 RBC 4.11 Hgb 13.5 Hct 39.2 MCV 96 MCH 33.0 MCHC 34.5 RDW 12.6 Plt Count 196 Seg Neutrophils % 58.9 Lymphocytes % 33.0 Monocytes % 6.8 Eosinophils % 0.9 Basophils % 0.4 Absolute Neutrophils 3.6 Absolute Lymphocytes 2.0 Absolute Monocytes 0.4 Absolute Eosinophils 0.1 Absolute Basophils 0.0 Sodium 139.8 Potassium 4.3 Chloride 106 Carbon Dioxide 25 Anion Gap 9 BUN 10 Creatinine 0.48 L Est GFR ( Amer) > 60 Est GFR (Non-Af Amer) > 60 Glucose 79 Calcium 9.2 Total Bilirubin 0.4 Direct Bilirubin 0.2 Neonat Total Bilirubin Not Reportable Neonat Direct Bilirubin Not Reportable Neonat Indirect Bili Not Reportable AST 14 ALT 18 Alkaline Phosphatase 55 Total Protein 6.5 Albumin 4.2 Serum HCG, Qual POSITIVE H Valproic Acid 62.5 - Vital Signs Vital signs: Temp Pulse Resp BP Pulse Ox 98.4 F 102 H 17 119/60 99 05/22/18 17:51 05/22/18 17:51 05/22/18 17:51 05/22/18 17:51 05/22/18 17:51 - Laboratory Result Diagrams: 05/22/18 13:43 05/22/18 13:43 Laboratory results interpreted by me: 05/22/18 05/22/18 13:43 13:43 Creatinine 0.48 L Serum HCG, Qual POSITIVE H Discharge - Discharge Clinical Impression: Seizure Qualifiers: Weeks of gestation: unspecified Qualified Code(s): Z34.90 - Encounter for supervision of normal , unspecified, unspecified trimester Condition: Stable Disposition: HOME, SELF-CARE Instructions: ([facility]) Additional Instructions: Please follow-up with your neurologist as well as the [facility], as you will need to coordinate care with the prescription medications you are on for your seizure disorder, as many of these medications are contraindicated in or at least high risk in . Referrals: VALENTINO LINARES MD [Primary Care Provider] - Follow up as needed [facility] [Provider Group] - Follow up in 3-5 days
[2018-05-22 16:12] LABS: ABSOLUTE EOSINOPHILS # (AUTO) 0.1 10^3/uL (0.0-0.6); ABSOLUTE MONOCYTES (AUTO) 0.4 10^3/uL (0.1-1.4); ABSOLUTE NEUT (AUTO) 3.6 10^3/uL (1.7-8.2); BASOPHILS % (AUTO) 0.4 % (0-2); EOSINOPHILS % (AUTO) 0.9 % (0-6); HEMATOCRIT 39.2 % (36.0-47.0); HEMOGLOBIN 13.5 g/dL (12.0-15.5); MEAN CORPUSCULAR HGB CONC 34.5 g/dL (32.0-36.0); MEAN CORPUSCULAR VOLUME 96 fl (80-97); MONOCYTES % (AUTO) 6.8 % (3-13); PLATELET COUNT 196 10^3/uL (150-450); RED BLOOD COUNT 4.11 10^6/uL (3.72-5.28); RED CELL DISTRIBUTION WIDTH 12.6 % (11.5-14.0); SEGMENTED NEUTROPHILS % (AUTO) 58.9 % (42-78); TOTAL CELLS COUNTED % (AUTO) 100 %; WHITE BLOOD COUNT 6.1 10^3/uL (4.0-10.5)
[2018-05-22 16:19] LABS: ALANINE AMINOTRANSFERASE 18 U/L (9-52); ALBUMIN 4.2 g/dL (3.5-5.0); ALKALINE PHOSPHATASE 55 U/L (38-126); ANION GAP 9 (5-19); ASPARTATE AMINO TRANSFERASE 14 U/L (14-36); BILIRUBIN,DIRECT 0.2 mg/dL (0.0-0.4); BILIRUBIN,TOTAL 0.4 mg/dL (0.2-1.3); BLOOD UREA NITROGEN 10 mg/dL (7-20); CALCIUM 9.2 mg/dL (8.4-10.2); CARBON DIOXIDE 25 mmol/L (22-30); CHLORIDE 106 mmol/L (98-107); GLUCOSE 79 mg/dL (75-110); POTASSIUM 4.3 mmol/L (3.6-5.0); SODIUM 139.8 mmol/L (137-145); TOTAL PROTEIN 6.5 g/dL (6.3-8.2)
[2018-05-22 17:52] VITALS: BP 119/60
== END 2018-05-22 17:52 | disposition home or self-care (01) ==
LOC: ER 13:37
DX: O99.350 Diseases of the nervous system complicating pregnancy, unspecified trimester (principal); G40.909 Epilepsy, unspecified, not intractable, without status epilepticus; Z79.899 Other long term (current) drug therapy; O26.899 Other specified pregnancy related conditions, unspecified trimester; R11.0 Nausea; O99.330 Smoking (tobacco) complicating pregnancy, unspecified trimester; F17.210 Nicotine dependence, cigarettes, uncomplicated; Z3A.00 Weeks of gestation of pregnancy not specified; Z88.8 Allergy status to other drugs, medicaments and biological substances
CPT/HCPCS: 99284; 96374; 96375; 36415; 84703; 85025; 80053; 80164; J2060; J1953

== ENCOUNTER 2018-06-16 20:40 | Emergency (ER) | payer MEDICAID ==
[2018-06-16 21:05] VITALS: BP 140/89
== END 2018-06-16 21:05 | disposition left against medical advice (07) ==
LOC: ER 20:40
DX: Z53.21 Procedure and treatment not carried out due to patient leaving prior to being seen by health care provider (principal)

== ENCOUNTER 2018-11-08 21:48 | Outpatient (CLI) | payer MEDICAID ==
[2018-11-08 23:05] LABS: APPEARANCE,URINE CLOUDY; BILIRUBIN,URINE MODERATE (NEGATIVE); CALCIUM OXALATE CRYSTALS,URINE MANY /HPF; COLOR,URINE AMBER; GLUCOSE, URINE NEGATIVE (NEGATIVE); KETONES,URINE 80 mg/dL (NEGATIVE); LEUKOCYTE ESTERASE,URINE SMALL (NEGATIVE); NITRITE,URINE NEGATIVE (NEGATIVE); PROTEIN,URINE 100 mg/dL (NEGATIVE); URINE SPECIFIC GRAVITY 1.035
[2018-11-08 23:25] LABS: URINE AMPHETAMINES SCREEN NEGATIVE; URINE BARBITURATES SCREEN NEGATIVE; URINE MARIJUANA (THC) SCREEN NEGATIVE; URINE METHADONE SCREEN NEGATIVE; URINE PHENCYCLIDINE SCREEN NEGATIVE
[2018-11-08 23:33] LABS: BACTERIA (WET MOUNT) 3+ BACTERIA SEEN; EPITHELIALS (WET MOUNT) 3+ EPITHELIALS SEEN; RBCS (WET MOUNT) NO RBCS SEEN; T.VAGINALIS (WET MOUNT) NO TRICHOMONAS SEEN; WBCS (WET MOUNT) NO WBCS SEEN; YEAST (WET MOUNT) NO YEAST SEEN
--- NOTE | 2018-11-08 23:47 | RADIOLOGY REPORT (SQ) ---
EXAM DESCRIPTION: US LIMITED COMPLETED DATE/TME: 11/08/2018 00:00 CLINICAL HISTORY: 23 years Female, R/O PTL 28w1d Comparison: None. TECHNIQUE/LIMITATION: Targeted OB sonogram for requested parameters only. FINDINGS: Single IUP Cardiac activity: 155-bpm. ARISTIDES: 14.6-cm, clear Placenta: Anterior. No demonstrated abruption or previa. Presentation: Vertex Cervical length: 3.0-cm. Closed appearance. IMPRESSION: Targeted OB sonogram for requested parameters
[2018-11-09 01:02] LABS: CHLAM PCR NOT DETECTED (NOT DETECT)
--- NOTE | 2018-11-09 02:31 | PDOC PROGRESS REPORT ---
Subjective Progress Note for:: 11/09/18 Reason For Visit: LABOR CHECK, complaining of contractions and loss of mucus plug. Physical Exam - Physical Exam Vital Signs: Intake & Output 11/07/18 11/08/18 11/09/18 06:59 06:59 06:59 Weight 84.9 kg Result Laboratory Results: 11/08/18 22:24 Urine Color TIM Urine Appearance CLOUDY Urine pH 5.0 Ur Specific [place] 1.035 Urine Protein 100 H Urine Glucose (UA) NEGATIVE Urine Ketones 80 H Urine Blood NEGATIVE Urine Nitrite NEGATIVE Ur Leukocyte Esterase SMALL H Urine WBC (Auto) 15 Urine RBC (Auto) 6 Impressions: Obstetrics Ultrasound 11/08/18 00:00 IMPRESSION: Targeted OB sonogram for requested parameters Assessment & Plan - Plan Summary Plan Summary: I was notified of a positive fern pattern test for ruputure of membranes that was performed by the RN. However, this result was inconsistent with the reported exam and inconsistent with the amount of fluid evident on the ultrasound images that I had reviewed myself. Therefore, I went to the lab and looked at the fern slide myself with the assistance of the laborer powerhouse in microbiology this evening. On visualization of the slide, it was NO evidence of ferning present. There were multiple epithelial cells and clue cells noted. The laborer powerhouse indicated that she notified the microbiology lab analyst and that they would reserve changing the official result when the slide was reviewed by the hematology director and Dr. Mojica. Will ask oncoming physician to follow up with the result in AM.
== END 2018-11-09 00:49 | disposition home or self-care (01) ==
LOC: LC 21:48
PROVIDERS: ATTEND Obstetrics & Gynecology
PROC: 4A1HXCZ Monitoring of Products of Conception, Cardiac Rate, External Approach (ICD-10-PCS; principal; 2018-11-08)
DX: O47.03 False labor before 37 completed weeks of gestation, third trimester (principal); Z3A.28 28 weeks gestation of pregnancy
CPT/HCPCS: 59899; 87210; 81001; 80307; 87491; 87591; 76815; Q0114

== ENCOUNTER 2018-12-12 16:19 | Outpatient (CLI) | payer MEDICAID ==
--- NOTE | 2018-12-12 17:14 | Non Stress Test Report ---
Non Stress Test Datetime Report Generated by CPN: 12/12/2018 17:14 DEMOGRAPHIC EGA NST: 33.0 INDICATION Indication for Study: Other Indication for Study (NST) Other: LABOR CHECK VITAL SIGNS Temperature - NST: 98.0 MONITORING Monitor Explained: Monitor Explained; Test Explained; Patient Verbalized Understanding Time on Monitor: 12/12/2018 16:28 Time off Monitor: 12/12/2018 17:13 NST Duration: 45 NST INTERVENTIONS NST Interventions: PO Hydration; Reposition Patient Physician Notified NST: Dr. Edison BABY A: [id number] BABY A Movement : Present Contraction Frequency : x2 FHR Baseline : 150 Accelerations : 15X15 Decelerations : None Variability : Moderate 6-25bpm NST Review: Meets Criteria for Reactive NST NST Review and Verified By : Gunner Dumas RN NST Results: Reactive NST REPORT Report Trigger: Send Report
== END 2018-12-12 17:05 | disposition home or self-care (01) ==
LOC: LC 16:19
PROVIDERS: ATTEND Obstetrics & Gynecology
PROC: 4A1HXCZ Monitoring of Products of Conception, Cardiac Rate, External Approach (ICD-10-PCS; principal; 2018-12-12)
DX: Z34.03 Encounter for supervision of normal first pregnancy, third trimester (principal)
CPT/HCPCS: 59025

== ENCOUNTER 2019-03-19 15:46 | Emergency (ER) | payer MEDICAID ==
[2019-03-19] MEDS ORDERED: LORAZEPAM INJ 2 MG/1 ML VIAL IV ONE ×2 (17:26→19:45)
--- NOTE | 2019-03-19 17:35 | ER Document Report ---
ED General - General Chief Complaint: Seizure Stated Complaint: SEIZURE Time Seen by Provider: 03/19/19 16:19 Primary Care Provider: VANCE LUGO FNP-C [Primary Care Provider] - Follow up as needed TRAVEL OUTSIDE OF THE U.S. IN LAST 30 DAYS: No - HPI Notes: 24-year-old female presenting with a chief complaint of recurrent seizures. Family reports patient has had seizures since age 5. She delivered a baby within the last 2 months. She has a long-standing history of "absence seizure's" and they say she is having these more often now and that none of the neurologists her epilepsy specialist she is seen previously have been able to do anything to control situation. She was seeing a private neurologist in [facility] was last seen there about 2 weeks ago. No new changes in medication per . She presently takes Depakote, Keppra and Onfi. She al so takes folic acid. She previously been admitted to the epilepsy service at [place] for over 2 weeks and angrily tells me "they did nothing" taking her off all medications for an extended period of time" just letting her seize." Patient apparently has an outpatient referral to epilepsy service at [facility] sometime later this month. reports she is had 5 or more seizures today and they therefore decided to come to the emergency department. No reported use of drugs or alcohol. No nausea vomiting fever cough or diarrhea reported. No falls or injuries reported. . - Related Data Allergies/Adverse Reactions: pseudoephedrine [From Sudafed] Allergy (Severe, Verified 11/09/18 01:12) Seizures Past Medical History - General Information source: Patient, Relative - Social History Smoking Status: Current Some Day Smoker Chew tobacco use (# tins/day): No Frequency of alcohol use: None Drug Abuse: None Family History: Reviewed & Not Pertinent Patient has suicidal ideation: No Patient has homicidal ideation: No Neurological Medical History: Reports: Hx Seizures Renal/ Medical History: Denies: Hx Peritoneal Dialysis Past Surgical History: Reports: Hx Cholecystectomy - Immunizations Hx Diphtheria, Pertussis, Tetanus Vaccination: Yes Review of Systems - Review of Systems Notes: Constitutional: Negative for fever. HENT: Negative for sore throat. Eyes: Negative for visual changes. Cardiovascular: Negative for chest pain. Respiratory: Negative for shortness of breath. Gastrointestinal: Negative for abdominal pain, vomiting or diarrhea. Genitourinary: Negative for dysuria. Musculoskeletal: Negative for back pain. Skin: Negative for rash. Neurological: As per HPI. 10 point ROS negative except as marked above and in HPI. Physical Exam - Vital signs Vitals: Temp Pulse Resp BP Pulse Ox 98.0 F 67 20 97/64 L 100 03/19/19 15:47 03/19/19 15:47 03/19/19 15:47 03/19/19 15:47 03/19/19 15:47 - Notes Notes: GENERAL: Well-developed well-nourished appearing anxious and otherwise in no acute distress. Poor personal hygiene. SKIN: Good turgor no rashes. HEAD: Normocephalic atraumatic. EYES: PERRLA. Conjunctivae and sclerae clear. EARS: CANALS AND TMS CLEAR. NOSE: CLEAR. MOUTH: Moist mucosa. Good dentition. No stridor or edema. No drooling. NECK: Supple. No masses or thyromegaly. No adenopathy. Carotids 2+ without bruits. No JVD. BACK: Symmetrical without tenderness. CHEST: Respirations unlabored. Breath sounds clear and symmetrical. HEART: Regular rhythm. No murmur gallop or rub. ABDOMEN: Soft nontender without masses, organomegaly or rebound. Bowel sounds normally active. No bruits. EXTREMITIES: No edema. No calf tenderness. Cap refill less than 1.5 seconds. Dorsalis pedis and posterior tibial pulses 3+ and symmetrical. NEUROLOGICAL: GCS 15. Alert and oriented x3. Fluent speech. Cranial nerves II through XII intact. Sensorimotor and cerebellar normal. Normal tone. Course - Re-evaluation Re-evalutation: 03/19/19 17:40 While I was at the bedside the patient became unresponsive and turned her head to the right side and began making some grimacing movements which the described as her typical seizure. Her muscular tone was not increased there was no tachycardia no dilatation of the pupils. With loud verbal stimuli patient w ould turn her head to the opposite side. There was no urinary incontinence. When I performed a "drop test" the patient repeatedly carefully avoided striking her face with her hand. began screaming at me and reported that he was not going to stand for this because he was "bipolar". Appearance at this time at least suggests that the patient is probably having pseudoseizures. We are going to give her some IV Ativan. We will obtain a noncontrast head CT and repeat appropriate lab studies including urinalysis urine test urine drug screen conference of metabolic profile CBC and EKG. I explained to that would be necessary to get some preliminary data and then I will be happy to speak with either her neurologist to want a tertiary care epilepsy centers to see what other options we might have available to her at this time. 03/19/19 20:26 I tried to contact patient's local neurologist who was not available at this time. Everything it I have seen [place] appears to be pseudoseizure activity. Her labs here including tox screen, urinalysis CBC and comprehensive metabolic profile are all unremarkable. Noncontrast head CT was read as normal by the radiologist. continues to be very volatile demanding and belligerent. I have determined that his proximal frustration seems to be that "she needs to be admitted" and I explained to him that I do not have any local resources to provide. I do not think she is going to meet criteria for emergent transfer to inpatient neurology service [place] but I have offered to consult with neurologist on-call at [facility] and depending on their opinion we can try to arrange prompt outpatient clinic referral as necessary. 03/19/19 20:[address] Akers (Neurologist retail sales consultant at [facility]). He feels that our work-up is been appropriate and also says he thinks it is very likely that this lady is having pseudoseizures. He recommends that she keep the appointment that has been previously arranged with the neurology clinic at [facility] or alternatively her may bring her to emergency department at [facility] where consultation can be obtained in the ER. He DOES NOT feel there are indications for transfer to the ER or to an inpatient neurology service at [facility] at this time. - Vital Signs Vital signs: Temp Pulse Resp BP Pulse Ox 98.0 F 67 16 91/64 L 96 03/19/19 15:47 03/19/19 15:47 03/19/19 16:01 03/19/19 16:01 03/19/19 16:01 - Laboratory Result Diagrams: 03/19/19 18:33 03/19/19 18:33 Laboratory results interpreted by me: 03/19/19 03/19/19 18:33 18:33 RDW 14.9 H Lymph % (Auto) 45.4 H Creatinine 0.50 L Glucose 72 L Total Protein 6.1 L Discharge - Discharge Clinical Impression: Pseudoseizure, Seizure disorder Condition: Stable Disposition: HOME, SELF-CARE Additional Instructions: Continue current medications. Keep previously scheduled appointment with neurology clinic at [facility]. Alternatively you may go to the emergency department at [facility] and request further evaluation there with neurology consultation in the ED. Referrals: VANCE LUGO FNP-C [Primary Care Provider] - Follow up as needed
[2019-03-19 18:44] LABS: APPEARANCE,URINE CLEAR; BILIRUBIN,URINE NEGATIVE (NEGATIVE); COLOR,URINE YELLOW; GLUCOSE, URINE NEGATIVE (NEGATIVE); KETONES,URINE NEGATIVE (NEGATIVE); PROTEIN,URINE NEGATIVE (NEGATIVE); URINE SPECIFIC GRAVITY 1.013; UROBILINOGEN,URINE NEGATIVE mg/dL (<2.0)
[2019-03-19 18:48] LABS: ABSOLUTE EOSINOPHILS # (AUTO) 0.1 10^3/uL (0.0-0.6); ABSOLUTE LYMPHOCYTES (AUTO) 2.8 10^3/uL (0.5-4.7); ABSOLUTE MONOCYTES (AUTO) 0.3 10^3/uL (0.1-1.4); BASOPHILS % (AUTO) 0.3 % (0-2); EOSINOPHILS % (AUTO) 1.9 % (0-6); HEMATOCRIT 38.2 % (36.0-47.0); HEMOGLOBIN 12.9 g/dL (12.0-15.5); LYMPHOCYTES % (AUTO) 45.4 % (13-45); MEAN CORPUSCULAR HEMOGLOBIN 32.3 pg (27.0-33.4); MEAN CORPUSCULAR HGB CONC 33.7 g/dL (32.0-36.0); MEAN CORPUSCULAR VOLUME 96 fl (80-97); MONOCYTES % (AUTO) 4.4 % (3-13); PLATELET COUNT 188 10^3/uL (150-450); RED BLOOD COUNT 3.99 10^6/uL (3.72-5.28); RED CELL DISTRIBUTION WIDTH 14.9 % (11.5-14.0); TOTAL CELLS COUNTED % (AUTO) 100 %; WHITE BLOOD COUNT 6.2 10^3/uL (4.0-10.5)
[2019-03-19 18:59] LABS: ALBUMIN 3.6 g/dL (3.5-5.0); ALKALINE PHOSPHATASE 49 U/L (38-126); ANION GAP 9 (5-19); ASPARTATE AMINO TRANSFERASE 16 U/L (14-36); BILIRUBIN,DIRECT 0.1 mg/dL (0.0-0.4); BILIRUBIN,TOTAL 0.3 mg/dL (0.2-1.3); BLOOD UREA NITROGEN 10 mg/dL (7-20); CALCIUM 9.1 mg/dL (8.4-10.2); CARBON DIOXIDE 23 mmol/L (22-30); CHLORIDE 107 mmol/L (98-107); GLUCOSE 72 mg/dL (75-110); TOTAL PROTEIN 6.1 g/dL (6.3-8.2)
[2019-03-19 19:03] LABS: ALCOHOL < 10 mg/dL (NONE DETECTED)
[2019-03-19 19:39] LABS: URINE AMPHETAMINES SCREEN NEGATIVE; URINE BARBITURATES SCREEN NEGATIVE; URINE COCAINE SCREEN NEGATIVE; URINE MARIJUANA (THC) SCREEN NEGATIVE; URINE METHADONE SCREEN NEGATIVE; URINE PHENCYCLIDINE SCREEN NEGATIVE
--- NOTE | 2019-03-19 20:06 | RADIOLOGY REPORT (SQ) ---
EXAM DESCRIPTION: CT HEAD WITHOUT COMPLETED DATE/TIME: 03/19/2019 7:54 pm REASON FOR STUDY: seizure COMPARISON: None. TECHNIQUE: Axial images acquired through the brain without intravenous contrast. Images reviewed wi th bone, brain and subdural windows. Images stored on PACS. All CT scanners at this facility use dose modulation, iterative reconstruction, and/or weight based d osing when appropriate to reduce radiation dose to as low as reasonably achievable (ALARA). [facility]: Dose Right [facility]: CareDose [facility]: Dose Right [facility]: Teradose 4D [facility]: Smart [employer] RADIATION DOSE: CT Rad equipment meets quality standard of care and radiation dose reduction techniq ues were employed. CTDIvol: 53.2 mGy. DLP: 964 mGy-cm. mGy. LIMITATIONS: None. FINDINGS: VENTRICLES: Normal size and contour. CEREBRUM: No mass effect. No hemorrhage. No midline shift. Normal trotter/white matter differentiatio n. No evidence for acute territorial infarction. CEREBELLUM: No mass effect. No hemorrhage. No alteration of density. No evidence for acute infarct ion. EXTRAAXIAL SPACES: No fluid collections. ORBITS AND GLOBE: Symmetrical contour of the globes. CALVARIUM: No depressed skull fracture. PARANASAL SINUSES: No air-fluid level. SOFT TISSUES: No hematoma. Radiopaque piercing is noted at the right nostril. IMPRESSION: No acute intracranial hemorrhage or acute territorial infarct. EVIDENCE OF ACUTE STROKE: NO. COMMENT: Quality ID # [id number]: Final reports with documentation of one or more dose reduction techniques (e.g., Automated exposure control, adjustment of the mA and/or kV according to patient size, use of iterative reconstruction technique) TECHNICAL DOCUMENTATION: JOB ID: [id number] [place]-[id number] 2010 [employer]- All Rights Reserved Reading location - IP/workstation name: [email or web address]
[2019-03-19 20:09] LABS: URINE BENZODIAZEPINES SCREEN UNCONFIRMED POSITIVE
[2019-03-19 20:55] LABS: VENOUS BLOOD BASE EXCESS 0.7 mmol/L; VENOUS BLOOD HCO3 25.9 mmol/L (20-32); VENOUS BLOOD PCO2 43.4 mmHg (35-63); VENOUS BLOOD PH 7.39 (7.30-7.42)
[2019-03-19 21:29] VITALS: BP 105/62
--- NOTE | 2019-03-19 23:43 | EKG REPORT ---
SEVERITY:- ABNORMAL ECG - SINUS RHYTHM ATRIAL PREMATURE COMPLEX PROBABLE LEFT ATRIAL ABNORMALITY BORDERLINE T ABNORMALITIES, ANT-LAT LEADS BORDERLINE ST ELEVATION, INFERIOR LEADS : Confirmed by: Maria Elena Olmos MD 19-Mar-2019 23:41:53
== END 2019-03-19 21:25 | disposition home or self-care (01) ==
LOC: ER 15:46
DX: G40.909 Epilepsy, unspecified, not intractable, without status epilepticus (principal); F17.200 Nicotine dependence, unspecified, uncomplicated; Z90.49 Acquired absence of other specified parts of digestive tract
CPT/HCPCS: 36415; 70450; 80053; 80164; 80307; 81001; 81025; 82803; 85025; 93005; 93010; 99284

== ENCOUNTER 2019-05-20 09:50 | Emergency (ER) | payer MEDICAID ==
--- NOTE | 2019-05-20 10:35 | ER Document Report ---
ED General - General Chief Complaint: Probable Seizure Stated Complaint: POSSIBLE SEIZURE Time Seen by Provider: 05/20/19 10:11 Primary Care Provider: VANCE LUGO FNP-C [Primary Care Provider] - Follow up as needed Notes: HPI: 24-year-old female who presents today with a witnessed seizure-like activity lasting around 3 to 5 minutes. states that the patient has seizures almost every day. 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 Patient follows a local neurologist here Dr. vicente and is on 3 different antiseizure medications. She had her Depakote discontinued 45 days ago by this neurologist. Patient denies any and all headache, neck pain, chest pain, cindy pain, weakness or numbness. Patient understands seizure precautions as does the father. Patient denies any symptoms at this time. Dad was concerned because during this episode it appears that the patient was having a slow respiratory rate. EMS stated that the patient's oxygenation according to the father was excellent when EMS arrived. Patient had no perioral or extremity blueness during the episodes. ROS: See HPI All other review of systems reviewed and otherwise negative Reviewed vital signs and nursing note as charted by RN. PHYSICAL EXAM: CONSTITUTIONAL: Alert and oriented and responds appropriately to questions. Well-appearing; well-nourished HEAD: Normocephalic; atraumatic EYES: PERRL; full extraocular range of motion, sclerae non-icteric ENT: Normal nose; no rhinorrhea; moist mucous membranes; pharynx without lesions noted NECK: Supple without meningismus; non-tender; no cervical lymphadenopathy, no masses CARD: Regular rate and rhythm; no murmurs; symmetric distal pulses RESP: Normal chest excursion without splinting or tachypnea; breath sounds clear and equal bilaterally; no wheezes, no rhonchi, no rales ABD/GI: Normal bowel sounds; non-distended; soft, non-tender; no palpable org anomegaly or masses BACK: The back appears normal and is non-tender to palpation EXT: Normal ROM in all joints; non-tender to palpation; no edema SKIN: No acute lesions noted NEURO: CN 2-12 intact; 5/5 bilateral upper and lower extremity strength with sensation intact to light touch PSYCH: The patient's mood and manner are appropriate. Grooming and personal hygiene are appropriate. TRAVEL OUTSIDE OF THE [place] IN LAST 30 DAYS: No - Related Data Allergies/Adverse Reactions: Antihistamines - Alkylamine Allergy (Severe, Verified 05/20/19 10:00) Seizures pseudoephedrine [From Sudafed] Allergy (Severe, Verified 11/09/18 01:12) Seizures Home Medications: Keppra, distatin, benzol Past Medical History - Social History Smoking Status: Current Every Day Smoker Family History: Reviewed & Not Pertinent Patient has suicidal ideation: No Patient has homicidal ideation: No Neurological Medical History: Reports: Hx Seizures Renal/ Medical History: Denies: Hx Peritoneal Dialysis Past Surgical History: Reports: Hx Section, Hx Cholecystectomy, Hx Tubal Ligation - Immunizations Hx Diphtheria, Pertussis, Tetanus Vaccination: Yes Physical Exam - Vital signs Vitals: Temp Pulse Resp BP Pulse Ox 98.0 F 75 12 108/63 100 05/20/19 10:00 05/20/19 10:00 05/20/19 10:00 05/20/19 10:00 05/20/19 10:00 Course - Re-evaluation Re-evalutation: Given the above history and physical examination with 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 Vital signs are stable. No tenderness to palpation of the abdomen. No focal neurological deficits. Patient was taken off Depakote by the neurologist around 45 days ago. She does have an appointment with the neurologist in 3 days. I had a talk with the patient and father regarding possibly the need for mood stabilizer given the history of depression and psychogenic seizures. 05/20/19 10:33 EKG shows a heart of 63, normal sinus rhythm, normal axis, no ST elevation or depression. 05/20/19 12:30 Patient has had to repeat epileptic like events. During the second event while the patient had her eyes closed I did obtain an ice cold cough with water and placed immediately to the face. Patient did have absolutely no response. I have ordered Ativan and IV Keppra. Anticipate possible admission/transfer. I have ordered a lactic acid given the possibility of these repeat seizures, and elevated lactic acid should be produced. 05/20/19 14:29 We have called [facility], [facility], and [facility]. [facility] is on greater than 4-day hold. [facility] was greater than 48 hours. [facility] has accepted the patient and they will less than 24. I spoke with the hospitalist as well as the neurologist Dr. Bryson. He had no acute further recommendations. I have provided the patient's home Keppra IV. We will start the patient's home medications and keep the patient on the monitor. - Vital Signs Vital signs: Temp Pulse Resp BP Pulse Ox 98.0 F 75 16 100/68 98 05/20/19 10:00 05/20/19 10:00 05/20/19 11:10 05/20/19 11:10 05/20/19 11:10 - Laboratory Result Diagrams: 05/20/19 10:06 05/20/19 12:00 Discharge - Discharge Clinical Impression: Status epilepticus Condition: Fair Disposition: [facility] Referrals: VANCE LUGO FNP-C [Primary Care Provider] - Follow up as needed
[2019-05-20 10:49] LABS: ABSOLUTE EOSINOPHILS # (AUTO) 0.1 10^3/uL (0.0-0.6); ABSOLUTE MONOCYTES (AUTO) 0.3 10^3/uL (0.1-1.4); ABSOLUTE NEUT (AUTO) 2.4 10^3/uL (1.7-8.2); BASOPHILS % (AUTO) 0.7 % (0-2); HEMATOCRIT 43.3 % (36.0-47.0); HEMOGLOBIN 14.9 g/dL (12.0-15.5); LYMPHOCYTES % (AUTO) 40.5 % (13-45); MEAN CORPUSCULAR HGB CONC 34.3 g/dL (32.0-36.0); MEAN CORPUSCULAR VOLUME 96 fl (80-97); MONOCYTES % (AUTO) 6.9 % (3-13); PLATELET COUNT 192 10^3/uL (150-450); RED BLOOD COUNT 4.51 10^6/uL (3.72-5.28); RED CELL DISTRIBUTION WIDTH 12.1 % (11.5-14.0); SEGMENTED NEUTROPHILS % (AUTO) 49.9 % (42-78); TOTAL CELLS COUNTED % (AUTO) 100 %; WHITE BLOOD COUNT 4.8 10^3/uL (4.0-10.5)
[2019-05-20 11:14] LABS: APPEARANCE,URINE SLIGHTLY-CLOUDY; BILIRUBIN,URINE NEGATIVE (NEGATIVE); COLOR,URINE STRAW; GLUCOSE, URINE NEGATIVE (NEGATIVE); KETONES,URINE NEGATIVE (NEGATIVE); LEUKOCYTE ESTERASE,URINE NEGATIVE (NEGATIVE); NITRITE,URINE NEGATIVE (NEGATIVE); PROTEIN,URINE NEGATIVE (NEGATIVE); URINE SPECIFIC GRAVITY 1.009; UROBILINOGEN,URINE NEGATIVE mg/dL (<2.0)
[2019-05-20 11:36] LABS: URINE AMPHETAMINES SCREEN NEGATIVE; URINE BARBITURATES SCREEN NEGATIVE; URINE COCAINE SCREEN NEGATIVE; URINE MARIJUANA (THC) SCREEN NEGATIVE; URINE METHADONE SCREEN NEGATIVE; URINE PHENCYCLIDINE SCREEN NEGATIVE
[2019-05-20 11:42] LABS: URINE BENZODIAZEPINES SCREEN UNCONFIRMED POSITIVE
--- NOTE | 2019-05-20 12:16 | RADIOLOGY REPORT (SQ) ---
EXAM DESCRIPTION: CHEST 2 VIEWS COMPLETED DATE/TIME: 05/20/2019 10:37 am REASON FOR STUDY: Seizures. COMPARISON: Chest radiograph, 03/01/2017. . EXAM PARAMETERS: NUMBER OF VIEWS: two views TECHNIQUE: Digital Frontal and Lateral radiographic views of the chest acquired. RADIATION DOSE: NA LIMITATIONS: none FINDINGS: LUNGS AND PLEURA: No opacities, masses or pneumothorax. No pleural effusion. MEDIASTINUM AND HILAR STRUCTURES: No masses or contour abnormalities. HEART AND VASCULAR STRUCTURES: Heart normal size. No evidence for failure. BONES: No acute findings. HARDWARE: Battery pack with no lead wires in the left anterior chest wall. OTHER: No other significant finding. IMPRESSION: NO ACUTE RADIOGRAPHIC FINDING IN THE CHEST. TECHNICAL DOCUMENTATION: JOB ID: [id number] [employer]- All Rights Reserved Reading location - IP/workstation name: [email or web address]
[2019-05-20] MEDS ORDERED: LEVETIRACETAM 1000 MG/NACL-ISO 1,000 MG/100 ML RTUPB IV ONE (12:26)
[2019-05-20] MEDS ORDERED: LORAZEPAM INJ 2 MG/1 ML VIAL IV ONE (12:27)
[2019-05-20 12:35] LABS: ALBUMIN 4.2 g/dL (3.5-5.0); ALKALINE PHOSPHATASE 63 U/L (38-126); ANION GAP 6 (5-19); ASPARTATE AMINO TRANSFERASE 31 U/L (14-36); BILIRUBIN,TOTAL 0.3 mg/dL (0.2-1.3); BLOOD UREA NITROGEN 13 mg/dL (7-20); CALCIUM 9.5 mg/dL (8.4-10.2); CARBON DIOXIDE 27 mmol/L (22-30); CHLORIDE 104 mmol/L (98-107); GLUCOSE 83 mg/dL (75-110); POTASSIUM 4.6 mmol/L (3.6-5.0); TOTAL PROTEIN 6.8 g/dL (6.3-8.2)
[2019-05-20 12:38] LABS: ALCOHOL < 10 mg/dL (NONE DETECTED)
[2019-05-20 15:56] VITALS: BP 111/67
--- NOTE | 2019-05-20 21:23 | EKG REPORT ---
SEVERITY:- NORMAL ECG - SINUS RHYTHM : Confirmed by: Maria Elena Olmos MD 20-May-2019 21:22:15
== END 2019-05-20 15:56 | disposition left against medical advice (07) ==
LOC: ER 09:50
DX: G40.901 Epilepsy, unspecified, not intractable, with status epilepticus (principal); F17.200 Nicotine dependence, unspecified, uncomplicated; Z79.899 Other long term (current) drug therapy; Z88.8 Allergy status to other drugs, medicaments and biological substances
CPT/HCPCS: 93005; 36415; 82962; 80307 ×2; 83605; 83735; 84703; 85025; 80053; 81001; 71046; 93010; J2060; J1953; 96365; 96375; 99284

== ENCOUNTER → 2019-07-25 | Outpatient (CLI) | payer MEDICAID ==
--- NOTE | 2019-07-25 16:45 | RADIOLOGY REPORT (SQ) ---
EXAM DESCRIPTION: MRI HEAD WITHOUT IMAGES COMPLETED DATE/TIME: 07/25/2019 4:30 pm REASON FOR STUDY: G40.219 LOCAL-REL SYMPTC EPI W CMPLX PART SEIZ, NTRCT, W/O STAT EPI G40.219 LOCAL -REL SYMPTC EPI W CMPLX PART SEIZ, NTRCT, W/O S G35 MULTIPLE SCLEROSIS COMPARISON: 2019 CT brain. TECHNIQUE: Multiplanar imaging includes non-contrasted T1, T2, FLAIR, and diffusion with ADC map seq uences. Images stored on PACS. LIMITATIONS: None. FINDINGS: ANATOMY: No anomalies. Normal vascular flow voids. Pituitary fossa normal. CSF SPACES: Normal in size and contour. No hemorrhage. CEREBRUM: Sulci and gyri normal in size and contour. Normal white matter signal on FLAIR imaging. No evidence of hemorrhage, mass, or extraaxial fluid collection. POSTERIOR FOSSA: No signal alteration. No hemorrhage. No edema, masses or mass effect. Internal hayden tory canals, cerebello-pontine angles, mastoids normal. DIFFUSION IMAGING: Negative for acute or sub-acute infarction. ORBITS: No masses. Globes normal. PARANASAL SINUSES: No fluid levels. Mucosa normal. OTHER: No other significant finding. IMPRESSION: NORMAL MRI OF THE BRAIN WITHOUT INTRAVENOUS GADOLINIUM CONTRAST. EVIDENCE OF ACUTE STROKE: NO. TECHNICAL DOCUMENTATION: JOB ID: [id number] 2010 [employer]- All Rights Reserved Reading location - IP/workstation name: [email or web address]
== END ==
LOC: RAD 15:30
PROVIDERS: ATTEND Specialist
DX: G40.219 Localization-related (focal) (partial) symptomatic epilepsy and epileptic syndromes with complex partial seizures, intractable, without status epilepticus (principal); G35 Multiple sclerosis
CPT/HCPCS: 70551

== ENCOUNTER 2020-03-28 15:27 | Emergency (ER) | payer MEDICAID ==
--- NOTE | 2020-03-28 17:10 | ER Document Report ---
ED General - General Chief Complaint: Fall Stated Complaint: FALL/EYE PAIN Time Seen by Provider: 03/28/20 16:51 Primary Care Provider: JOE LECHUGA MD [Primary Care Provider] - Follow up as needed TRAVEL OUTSIDE OF THE [place] IN LAST 30 DAYS: No - HPI Notes: Patient is a 25-year-old female with a known seizure disorder, baseline multiple seizures daily, who presents emergency department for evaluation after a fall. Evidently her legs gave out from underneath her and she fell on her face. No loss of consciousness. It is unclear as to whether or not this was seizure activity, but again at baseline patient has extensive seizure activity. She has pain in her face that she currently rates a 3 out of 5. She denies any double vision. No bleeding. - Related Data Allergies/Adverse Reactions: Antihistamines - Alkylamine Allergy (Severe, Verified 03/28/20 17:01) Seizures pseudoephedrine [From Sudafed] Allergy (Severe, Verified 03/28/20 17:01) Seizures Home Medications: Patient unsure of all medications, list reviewed from pharmacies Past Medical History - General Information source: Patient - Social History Smoking Status: Current Every Day Smoker Chew tobacco use (# tins/day): No Frequency of alcohol use: None Drug Abuse: None Family History: Reviewed & Not Pertinent Neurological Medical History: Reports: Hx Seizures Renal/ Medical History: Denies: Hx Peritoneal Dialysis Past Surgical History: Reports: Hx Section, Hx Cholecystectomy, Hx Tubal Ligation - Immunizations Hx Diphtheria, Pertussis, Tetanus Vaccination: Yes Review of Systems - Review of Systems Constitutional: No symptoms reported EENT: See HPI Cardiovascular: No symptoms reported Respiratory: No symptoms reported Gastrointestinal: No symptoms reported Genitourinary: No symptoms reported Musculoskeletal: No symptoms reported Skin: No symptoms reported Neurological/Psychological: See HPI Physical Exam - Vital signs Vitals: Temp Pulse Resp BP Pulse Ox 97.8 F 83 16 108/62 100 03/28/20 15:55 03/28/20 15:55 03/28/20 15:55 03/28/20 15:55 03/28/20 15:55 - Notes Notes: This is a 25-year-old female who appears her stated age, no acute distress. She has intermittent myoclonic jerks in the upper and lower extremities, also baseline per her. Vital signs reviewed, please refer to chart. Head is normocephalic. She has a contusion and ecchymotic region overlying the left frontal bone, on the orbital ridge superiorly, and overlying the zygoma on the left inferiorly to the lateral eye. No appreciable orbital step-off. Pupils equal round, reactive to light. Nares are patent without septal hematoma. Oral mucosa is moist. Uvula is midline. Examination of the spine yields no midline tenderness or step-off. No paraspinal musculature tenderness is appreciated. Heart is regular rate and rhythm. Lungs are clear to auscultation bilaterally. Chest wall excursion is equal, chest is nontender. Abdomen is soft, nontender, normoactive bowel sounds throughout. Extremities without cyanosis, clubbing. Posterior calves are nontender. Peripheral pulses are equal. Skin is warm and dry. Patient is awake, alert, oriented x3. Cranial nerves II - XII are grossly intact without focal neurological deficits. Strength is plus 5 out of 5 bilateral upper and lower extremities. Sensation is intact. Reflexes symmetrical. Intact [id number], rapid alternating movements, [id number]. Course - Re-evaluation Re-evalutation: 03/28/20 17:09 Patient presents to the emergency department for evaluation. It seems likely to me that this patient had a small focal seizure. She has multiple seizures daily. She has not changed any of her medications recently. She does have hematoma to the side of the face. Her extraocular movements seem to be intact, but I do believe is reasonable to evaluate for an orbital fracture. She is currently stable, we will continue to monitor. 03/28/20 18:53 Patient was resting comfortably. She remained neurologically stable. CT scan of the face was unremarkable for any acute fractures. The patient was notified of findings and she should follow-up with her primary care provider this week. She is to return to the ED with worsening. - Vital Signs Vital signs: Temp Pulse Resp BP Pulse Ox 97.8 F 83 16 108/62 100 03/28/20 15:55 03/28/20 15:55 03/28/20 15:55 03/28/20 15:55 03/28/20 15:55 - Laboratory Results Critical Laboratory Results Reviewed: No Critical Results - Radiology Results Radiology Results Interpreted: 03/28/20 18:[address] 12/17/20 17:03 IMPRESSION: NO ACUTE FINDINGS. Critical Radiology Results Reviewed: No Critical Results Discharge - Discharge Clinical Impression: Facial contusion Qualifiers: Encounter type: initial encounter Qualified Code(s): S00.83XA - Contusion of other part of head, initial encounter Condition: Stable Disposition: HOME, SELF-CARE Instructions: Contusion ([facility]) Additional Instructions: Ice to the bruised area over the next 24 hours. Take Tylenol as needed for severe pain. No fracture was identified on your scan. Return to the emergency department if you develop worsening or new concerning symptoms of any sort. Referrals: JOE LECHUGA MD [Primary Care Provider] - Follow up as needed
--- NOTE | 2020-03-28 18:09 | RADIOLOGY REPORT (SQ) ---
EXAM DESCRIPTION: CT FACIAL AREA WITHOUT IMAGES COMPLETED DATE/TIME: 03/28/2020 5:40 pm REASON FOR STUDY: fall, facial contusion COMPARISON: None. TECHNIQUE: Noncontrasted images through the facial bones and orbits windowed for bone and soft tissu e. Additional coronal and sagittal reconstructed images reviewed. All images stored on PACS. All CT scanners at this facility use dose modulation, iterative reconstruction, and/or weight based d osing when appropriate to reduce radiation dose to as low as reasonably achievable (ALARA). [facility]: Dose Right [facility]: CareDose [facility]: Dose Right [facility]: Teradose 4D [facility]: [employer] RADIATION DOSE: CT Rad equipment meets quality standard of care and radiation dose reduction techniq ues were employed. CTDIvol: 30.4 mGy. DLP: 661 mGy-cm. mGy. LIMITATIONS: None. FINDINGS: FACIAL BONES: No fracture or bone lesion. ORBITS: Intact. No fracture. Symmetric intact globes and retroorbital soft tissues. PARANASAL SINUSES: Clear. No significant mucosal thickening, mass or fluid. No nasal polyps. Nasal septum is deviated to the left. Maxillary sinus outlets are patent. SOFT TISSUES: No mass or edema. INFERIOR BRAIN: Limited view. No acute findings. OTHER: No other significant finding. IMPRESSION: NO ACUTE FINDINGS. TECHNICAL DOCUMENTATION: JOB ID: [id number] Quality ID # [id number]: Final reports with documentation of one or more dose reduction techniques (e.g., Au tomated exposure control, adjustment of the mA and/or kV according to patient size, use of iterative reconstruction technique) 2010 [employer]- All Rights Reserved Reading location - IP/workstation name: [email or web address]
[2020-03-28 20:31] VITALS: BP 98/66
== END 2020-03-28 20:20 | disposition home or self-care (01) ==
LOC: ER 15:27
DX: S00.83XA Contusion of other part of head, initial encounter (principal); R51.9 Headache, unspecified; W19.XXXA Unspecified fall, initial encounter; G40.909 Epilepsy, unspecified, not intractable, without status epilepticus; F17.200 Nicotine dependence, unspecified, uncomplicated; Z79.899 Other long term (current) drug therapy; Z88.8 Allergy status to other drugs, medicaments and biological substances
CPT/HCPCS: 70486; 99284